=== PATIENT | female | born 2005 | race African-American/Black ===

== ENCOUNTER 2025-03-24 13:09 | Emergency (ER) | payer MEDICAID, OTHER ==
[~2025-03-24] VITALS: Ht 160 cm; Wt 63.3 kg
--- NOTE | 2025-03-24 13:46 | ED.PDOC ---
BOX BLANK MACHINE OPERATOR HELPER HPI Comments 19 y.o female presents to the ED for a chief complaint of pelvic cramping x 3 days associated with new onset vaginal bleeding this morning. Patient is 14 weeks gestation and OB is Dr. Clemens. Patient reports bleeding is mild, no clotting or recent injury reported. Patient at this time rates pelvic pain as a 7/10 on the pain scale that is constant, non radiating and has no alleviating factors. Patient denies any fever, chills, abdominal pain, diarrhea. Patient has no medical history or known allergies. She denies substance, alcohol or tobacco use. Chief Complaint: Vaginal Bleed Time Seen by MD: 13:37 Reviewed Notes: Nurses Notes, Medications, Allergies Allergies: Coded Allergies: NO KNOWN ALLERGIES (Unverified , 03/24/25) Home Meds Active Scripts Nitrofurantoin Monohydrate Mac (Macrobid) 100 Mg Cap, 100 MG PO BID for 7 Days, #14 CAP Prov:BARRY SCHAFFER MD 03/24/25 Information Source: Patient Mode of Arrival: Ambulatory Timing: Hours Severity: Mild Vaginal Discharge: None Vaginal Lesions: None Bleeding Quality: Bright Red Vaginal Mass: None Onset Of Mass/Bleeding: Spontaneous Sexual Activity: Last Consensual [place]: Unknown Control: None History of: Current Associated Signs and Symptoms: Vaginal Bleeding, Cramping Past Medical History PAST MEDICAL HISTORY: Denies Surgical History: Denies all surgeries REQUIREMENTS ANALYST History: No Pertinent REQUIREMENTS ANALYST History Family History Family History: Reviewed,noncontributory to illness Social History Smoker: Non-Smoker Alcohol: Denies ETOH Use Drugs: Denies Drug Use Lives In: Home Constitutional: denies: chills, diaphoresis, fatigue, fever, malaise, sweats, weakness, others EENTM: denies: blurred vision, double vision, ear bleeding, ear discharge, ear drainage, ear pain, ear ringing, eye pain, eye redness, hearing loss, mouth pain, mouth swelling, nasal discharge, nose bleeding, nose congestion, nose pain, photophobia, tearing, throat pain, throat swelling, voice changes, others Respiratory: denies: cough, hemoptysis, orthopnea, SOB at rest, shortness of breath, SOB with excertion, stridor, wheezing, others Cardiovascular: denies: chest pain, dizzy spells, diaphoresis, Dyspnea on e xertion, edema, irregular heart beat, left arm pain, lightheadedness, palpitations, PND, syncope, others Gastrointestinal: denies: abdomen distended, abdominal pain, blood streaked bowels, constipated, diarrhea, dysphagia, difficulty swallowing, hematemesis, melena, nausea, poor appetite, poor fluid intake, rectal bleeding, rectal pain, vomiting, others Genitourinary: reports: abnormal vagina bleeding, pain, ; denies: burning, dyspareunia, dysuria, flank pain, frequency, hematuria, incontinence, vagina discharge, urgency, others Neurological: denies: dizziness, fainting, headache, left sided numbness, left sided weakness, numbness, paresthesia, pre-existing deficit, right sided numbness, right sided weakness, seizure, speech problems, tingling, tremors, weakness, others Musculoskeletal: denies: back pain, gout, joint pain, joint swelling, muscle pain, muscle stiffness, neck pain, others Integumetry: denies: bruises, change in color, change in hair/nails, dryness, laceration, lesions, lumps, rash, wounds, others Allergic/Immunocompromised: denies: Difficulty Healing, Frequent Infections, Hives, Itching, others Hematologic/Lymphatic: denies: anemia, blood clots, easy bleeding, easy bruising, swollen glands, others Endocrine: denies: excessive hunger, excessive sweating, excessive thirst, excessive urination, flushing, intolerance to cold, intolerance to heat, unexplained weight gain, unexplained weight loss, others Psychiatric: denies: anxiety, bipolar disorder, depression, hopeless, panic disorder, schizophrenia, sleepless, suicidal, others All Other Systems: Reviewed and Negative Physical Exam General Appearance: No Apparent Distress HEENT: Normal ENT Inspection, Pharynx Normal, TMs Normal Neck: Full Range of Motion, Non-Tender, Normal, Normal Inspection Respiratory: Chest Non-Tender, Lungs Clear, No Accessory Muscle Use, No Respiratory Distress, Normal Breath Sounds Cardiovascular: No Edema, No JVD, No Murmur, No Gallop, Normal Peripheral Pulses, Regular Rate/Rhythm Breast Exam: Deferred Gastrointestinal: No Organomegaly, Non Tender, No Pulsatile Mass, Normal Bowel Sounds, Soft Genitalia: Deferred Pelvic: Deferred Rectal: Deferred Extremities: No calf tenderness, Normal capillary refill, Normal inspection, Normal range of motion, Non-tender, No pedal edema Musculoskeletal : Apperance: Normal Neurologic: Alert, transit vehicle inspector II-XII nml as Tested, No Motor Deficits, Normal Affect, Normal Mood, No Sensory Deficits Cerebellar Function: Normal Reflexes: Normal Skin: Dry, Normal Color, Warm Lymphatic: No Adenopathy Was a procedure done? Was a procedure done?: No Differential Diagnosis (REQUIREMENTS ANALYST) Vaginal Bleeding: - Complete, - Incomplete, - Inevitable, - Missed, - Threatened, Cervicitis, Ectopic X-Ray, Labs, Meds, VS Vital Signs Date Time Temp Pulse Resp B/P (MAP) Pulse Ox O2 Delivery O2 Flow Rate FiO2 03/24/25 18:00 98.0 90 20 108/55 (72) 100 98.0 03/24/25 15:30 98.8 90 20 105/52 (69) 97 98.8 03/24/25 13:28 98.9 83 17 117/63 (81) 97 98.9 Lab Test 03/24/25 16:43 03/24/25 14:00 Range/Units Urine Color Light-orange Yellow Urine Clarity Turbid H Clear Urine pH 6.0 5.0-9.0 Urine Specific [place] 1.024 1.001-1.035 Urine Protein Negative Negative Urine Ketones Negative Negative Urine Blood Negative Negative /uL Urine Nitrite 2+ H Negative Urine Bilirubin Negative Negative Urine Urobilinogen Normal Negative mg/dL Urine Leukocyte Esterase 2+ Negative /uL Urine RBC 2 0 - 4 /hpf Urine Microscopic WBC 24 H 0-5 /HPF Urine Squamous Epithelial Cells Few <5 /hpf Urine Bacteria Few H None Seen /hpf Urine Mucus Moderate None Seen Urine Glucose Normal Normal mg/dL White Blood Count 9.2 4.4-10.8 10^3/uL Red Blood Count 4.04 4.0-5.20 10^6/uL Hemoglobin 11.7 L 12.2-16.2 g/dL Hematocrit 34.1 L 36.0-46.0 % Mean Corpuscular Volume 84.3 80.0-100.0 fL Mean Corpuscular Hemoglobin 29.0 28.0-32.0 pg Mean Corpuscular Hemoglobin Concent 34.4 32.0-36.0 g/dL Red Cell Distribution Width 16.3 H 11.8-14.3 % Platelet Count 374 140-450 10^3/uL Mean Platelet Volume 6.8 L 6.9-10.8 fL Neutrophils (%) (Auto) 75.9 37.0-80.0 % Lymphocytes (%) (Auto) 16.9 10.0-50.0 % Monocytes (%) (Auto) 6.0 0.0-12.0 % Eosinophils (%) (Auto) 0.9 0.0-7.0 % Basophils (%) (Auto) 0.3 0.0-2.0 % Neutrophils # (Auto) 7.0 1.6-8.6 10 ^3/uL Lymphocytes # (Auto) 1.6 0.4-5.4 10 ^3/uL Monocytes # (Auto) 0.6 0-1.3 10 ^3/uL Eosinophils # (Auto) 0.1 0-0.8 10 ^3/uL Basophils # (Auto) 0 0-0.2 10 ^3/uL Nucleated Red Blood Cells 0.0 % Beta HCG, Quantitative 07945.0 H 1.5-4.2 mIU/mL Ultrasound of the pelvis shows:IMPRESSION: IUP single live fetus at 15 weeks 5 days AUA corresponding to an YUSUF of 09-10-25 The CBC is within normal limits. The urine test is [place] [address] The patient is being discharged with a prescription of Macrobid The patient will return to the emergency department's the condition worsens Images Reviewed?: Images reviewed and evaluated by me Time of 1ST Reevaluation: 14:30 Reevaluation 1ST: Unchanged Patient Education/Counseling: Diagnosis, Treatment, Prognosis, Need For Follow Up Family Education/Counseling: No Family Present Departure 1 Departure Time of Disposition: 18:18 Impression: Primary Impression: UTI in Qualified Codes: O23.40 - Unspecified infection of urinary tract in , unspecified trimester Additional Impression: Threatened Disposition: 01 HOME / SELF CARE / HOMELESS Condition: Fair e-Prescriptions Nitrofurantoin Monohydrate Mac (Macrobid) 100 Mg Cap 100 MG PO BID for 7 Days, #14 CAP Prov: BARRY SCHAFFER MD 03/24/25 Discharged With: Self Critical Care Note Critical Care Time?: No Stability Stability form required: No I personally scribed for BARRY SCHAFFER MD ([email or web address]) on 6/30/25 at 13:46. Electronically submitted by Lata Santos ([facility]). I personally scribed for BARRY SCHAFFER MD ([email or web address]) on 03/24/25 at 14:59. Electronically submitted by Lata Santos ([facility]). BARRY SCHAFFER MD Mar 24, 2025 13:46
--- NOTE | 2025-03-24 14:17 | DVH ---
LIMITED OB ULTRASOUND > 14 WKS: HISTORY: vag bleeding and pain TECHNIQUE: Multiple real-time grayscale images of the gravid uterus with duplex Doppler color flow an d M-mode spectral analysis. TRANSDUCER: TA FINDINGS: IUP single live fetus at 15 weeks 5 days based on composite averages of the BPD, head circumference, abdominal circumference and femur length Estimated weight 132 grams heart rate 157 beats per minute TOREY appears adequate Cervix is closed measuring 3.1 cm. CEphalic Presentation Grade II Placenta without previa or abruption. IMPRESSION: IUP single live fetus at 15 weeks 5 days AUA corresponding to an YUSUF of 09-10-25
[2025-03-24 14:19] LABS: Basophils # (auto) 0 10 ^3/uL (0-0.2); Basophils % (auto) 0.3 % (0.0-2.0); Eosinophils # (auto) 0.1 10 ^3/uL (0-0.8); Eosinophils % (auto) 0.9 % (0.0-7.0); Hematocrit 34.1 % (36.0-46.0); Hemoglobin 11.7 g/dL (12.2-16.2); Lymphocytes # (auto) 1.6 10 ^3/uL (0.4-5.4); Lymphocytes % (auto) 16.9 % (10.0-50.0); Mean Corpuscular Hgb Conc. 34.4 g/dL (32.0-36.0); Mean Corpuscular Volume 84.3 fL (80.0-100.0); Monocytes # (auto) 0.6 10 ^3/uL (0-1.3); Neutrophils % (auto) 75.9 % (37.0-80.0); Platelet Count (auto) 374 10^3/uL (140-450); Red Blood Cells 4.04 10^6/uL (4.0-5.20); Red Cell Distribution Width 16.3 % (11.8-14.3); White Blood Cell 9.2 10^3/uL (4.4-10.8)
[2025-03-24 17:27] LABS: Urine Bacteria FEW /hpf (None Seen); Urine Blood Negative /uL (Negative); Urine Clarity Turbid (Clear); Urine Color Light-Orange (Yellow); Urine Mucus MODERATE (None Seen); Urine Protein, UAD Negative (Negative); Urine Specific Gravity 1.024 (1.001-1.035); Urine Squamous Epithelial Cell FEW /hpf (<5); Urine Urobilinogen Normal (Negative); Urine WBC 24 /HPF (0-5)
[2025-03-24 18:00] VITALS: BP 108/55; TEMP 98
[2025-03-24] MEDS ORDERED: NITR-87 PO (18:17)
[2025-03-24 19:32] VITALS: PULSE 90; RESP 20; O2SAT 100
== END 2025-03-24 19:34 | disposition home or self-care (01) ==
LOC: ER 13:09
DX: O23.42 Unspecified infection of urinary tract in pregnancy, second trimester (principal); O20.0 Threatened abortion; Z3A.15 15 weeks gestation of pregnancy; Z79.899 Other long term (current) drug therapy
CPT/HCPCS: 36415; 76805; 81001; 84702; 85025

== ENCOUNTER 2025-06-07 15:07 | Observation (INO) | payer MEDICAID ==
[~2025-06-07] VITALS: Ht 160 cm; Wt 72.1 kg
[~2025-06-07 15:07] MED LIST: NITR-87 PO
--- NOTE | 2025-06-07 16:25 | DVH ---
EXAM: US OB ULTRASOUND COMP GTR 14 WKS HISTORY: abdominal trauma COMPARISON: US OB ULTRASOUND COMP GTR 14 WKS on DOS: 03/24/25 TECHNIQUE: Transabdominal and endovaginal real time crow scale, color, and doppler evaluation. Perman ent images are maintained in the patient record. FINDINGS: GA by previous US/LMP: 26 weeks, 3 days YUSUF by previous US/LMP: 09/10/25 US GESTATIONAL AGE: 26 weeks, 2 days US YUSUF: 09/11/25 ESTIMATED WEIGHT: 903.11 g. 2 lb, 0 oz HEART RATE: 134 bpm BPD: 6.55 cm, 26 weeks 3 days, 40.1% HC: 24.36 cm, 26 weeks 3 days, 24.5% AC: 21.4 cm, 25 weeks 6 days, 25.5% FL: 4.9 cm, 26 weeks 3days, 36.3% HC/AC: 1.14 ANATOMY: Normal head, 4 chamber heart, face, spine, stomach, kidneys, cord insertion, bladder, extrem ities POSITION: Cephalic PLACENTA: Posterior Cervical length measures 3.6 cm IMPRESSION: 1. Single viable gestation with normal cardiac activity and anatomy as above.
[2025-06-07] MEDS: LACTATED RINGER'S 1,000 ML IV ONE (16:37)
[2025-06-07] MEDS: ceFAZolin 1GM/50ML 50 ML IV ONE (16:49)
[2025-06-07] MEDS: ACETAMINOPHEN IV 1000 MG/100ML (10MG/ML) IV ONE (18:28)
[2025-06-07] MEDS: LACTATED RINGER'S 1,000 ML IV SCH (18:41)
--- NOTE | 2025-06-07 19:47 | DVHDS2 ---
Physician Discharge Progress N Final Diagnosis: 26 WKS ABD PAIN AFTER TRAUMA Operations or Procedures: Operations or Procedures NST REACTIVE REVIWEDSAYO Condition on Discharge: Good Disposition: Home Discharge Instructions: Diet: Regular Activity: Light activity Medications: NA Follow Up Care: Specialist: 2D Discharge Statement: "Patient was advised to return to the ER or call 911 if any headaches, dizziness, shortness of breath, chest pain, abdominal pain, bleeding, fevers, or worsening of medical condition. Patient was counseled about treatment plan, medications, possible side effects, patientverbalized understanding. All questions were answered to the best of my ability. This discharge took greater then 30 minutes in planning, reviewing docume ntation, counseling the patient, and discussing with other team members." Visit Coding OBGYN Date of Service: Jun 07, 2025 Billing Provider: RADHA SALINAS DO CYLINDER GRINDER Common Visit Codes: 14455-RMKSTVZ OBS CARE (HIGH) CYLINDER GRINDER Procedure Codes: 31012-20- NON-STRESS TEST RADHA SALINAS DO Jun 07, 2025 19:47
[2025-06-07] MEDS: HYDROcodone-ACET 10/325MG TAB ONE (19:54)
[2025-06-07] MEDS: HYDROcodone-ACET 5/325MG TAB PO PRN (20:58)
== END 2025-06-07 20:51 | disposition home or self-care (01) ==
LOC: LDRP 15:07
PROVIDERS: ADMIT Obstetrics & Gynecology; ATTEND Obstetrics & Gynecology
DX: O26.892 Other specified pregnancy related conditions, second trimester (principal); R10.9 Unspecified abdominal pain; Z3A.26 26 weeks gestation of pregnancy; Z98.890 Other specified postprocedural states
CPT/HCPCS: 59025; 76805; 81002; 94760; 96360; 96361; 96365; 96366; G0378; J0690; 96375

== ENCOUNTER 2025-06-14 03:45 | Observation (INO) | payer MEDICAID ==
[~2025-06-14] VITALS: Ht 160 cm; Wt 72.1 kg
[2025-06-14] MEDS: ONDANSETRON HCL 4 MG/2 ML VIAL IV PRN (05:21)
[2025-06-14] MEDS: ACETAMINOPHEN 500 MG TAB or CAP PO ONE (05:25)
[2025-06-14] MEDS: LACTATED RINGER'S 1,000 ML IV ONE (05:29)
--- NOTE | 2025-06-14 06:07 | DVH ---
INDICATION: Nausea, Vomiting and Abdominal Pain TECHNIQUE: Multiple real-time sonographic images were obtained of the right upper quadrant. COMPARISON: None FINDINGS: The liver demonstrates normal homogeneous echotexture without focal mass lesions. The liver measures 14.1 cm. Normal hepatopetal portal venous flow identified. No evidence of pleural effusion or abdominal ascites. There is no intrahepatic or extrahepatic ductal dilatation. The common duct measures 0.3 cm. The gallbladder is without evidence of stone or sludge. The gallbladder wall measures 0.2 cm and is w ithin normal limits. The right kidney measures 9.3 cm. The right kidney is normal in contour, size, and shape. The echogen icity is normal. There is no hydronephrosis. The pancreas is not well visualized due to overlying bowel gas. IMPRESSION: 1. No sonographic evidence of gallstones or acute cholecystitis.
[2025-06-14 07:37] LABS: Hemoglobin 8.8 g/dL (12.2-16.2)
[2025-06-14 07:40] LABS: Hematocrit 26.8 % (36.0-46.0); Mean Corpuscular Hemoglobin 27.5 pg (28.0-32.0); Mean Corpuscular Volume 83.4 fL (80.0-100.0); Nucleated Red Blood Cells % 0.1 %
[2025-06-14 07:47] LABS: Albumin 3.7 g/dL (3.2-4.8); Alkaline Phosphatase 97 U/L (46-116); Anion Gap 11 (5-15); Carbon Dioxide 22 mmol/L (20-31); Chloride 106 mmol/L (98-107); Glucose 79 mg/dL (74-106); Sodium 139 mmol/L (136-145)
[2025-06-14 07:49] LABS: Bilirubin, Total 0.3 mg/dL (0.2-1.0)
[2025-06-14 07:52] LABS: Alanine Aminotransferase < 9 U/L (7-40); Calcium 8.7 mg/dL (8.7-10.4); Potassium 3.3 mmol/L (3.5-5.1)
[2025-06-14 08:22] LABS: Protein, Urine 6.1 mg/dL (1-14)
[2025-06-14 08:25] LABS: Urine Protein, UAD Negative (Negative)
[2025-06-14 08:32] LABS: Amphetamine Screen, Urine Neg (NEGATIVE); Barbiturate Scree,Urine Neg (NEGATIVE); Benzodiazephine Screen, Urine Neg (NEGATIVE); Cannabinoid Screen, Urine Neg (NEGATIVE); Cocaine Screen, Urine Neg (NEGATIVE); Opiate Scree,Urine Neg (NEGATIVE); Phencyclidine Screen, Urine Neg (NEGATIVE)
[2025-06-14 08:47] LABS: INR 1.0 (0.9-1.15); Partial Thromboplastin Time 27.6 SEC (24.5-34.5); Prothrombin Time 10.6 sec (9.3-11.8)
[2025-06-14 08:49] LABS: Uric Acid 2.8 mg/dL (3.1-7.8)
[2025-06-14 08:50] LABS: Total Protein 6.5 g/dL (5.7-8.2)
[2025-06-14 08:51] LABS: BUN/Creatinine Ratio 12.2 (10.0-20.0); Blood Urea Nitrogen < 5 mg/dL (9-23)
[2025-06-14 09:01] LABS: Lipase 32 U/L (12-53)
[2025-06-14 09:02] LABS: Amylase 164 U/L (30-118)
[2025-06-14 09:09] LABS: Fibrinogen 407.0 mg/dL (177-375)
--- NOTE | 2025-06-14 10:06 | DVHDS2 ---
Physician Discharge Progress N Final Diagnosis: IUP 27 wk, abdominal pain N/V Secondary Diagnosis: Gastroenteritis, dehydration Operations or Procedures: Operations or Procedures NST, labs all WNL RUQ us normal Condition on Discharge: Stable Disposition: Home Discharge Instructions: Diet: Regular Activity: No Restrictions, As Tolerated Follow Up/Referral: [address] Clemens Medications: Tylenol PRN pain Follow Up Care: Discharge Statement: "Patient was advised to return to the ER or call 911 if any headaches, dizziness, shortness of breath, chest pain, abdominal pain, bleeding, fevers, or worsening of medical condition. Patient was counseled about treatment plan, medications, possible side effects, patientverbalized understanding. All questions were answered to the best of my ability. This discharge took greater then 30 minutes in planning, reviewing do cumentation, counseling the patient, and discussing with other team members." Visit Coding OBGYN Date of Service: Jun 14, 2025 Billing Provider: TASIA ROBLEDO DO SOLAR INSTALLATION HELPER Common Visit Codes: 39767-RTL/OBS SAME DATE (HIGH) SOLAR INSTALLATION HELPER Procedure Codes: 93650-63- NON-STRESS TEST TASIA ROBLEDO DO Jun 14, 2025 10:06
== END 2025-06-14 09:12 | disposition home or self-care (01) ==
LOC: LDRP 03:45
PROVIDERS: ADMIT Obstetrics & Gynecology; ATTEND Obstetrics & Gynecology
DX: O26.892 Other specified pregnancy related conditions, second trimester (principal); K52.9 Noninfective gastroenteritis and colitis, unspecified; E86.0 Dehydration; O21.2 Late vomiting of pregnancy; Z3A.27 27 weeks gestation of pregnancy; Z98.890 Other specified postprocedural states; Z86.2 Personal history of diseases of the blood and blood-forming organs and certain disorders involving the immune mechanism
CPT/HCPCS: 36415; 76705; 80053; 80307; 81001; 81002; 82150; 82570; 83690; 84156; 84550; 85025; 85384; 85610; 85730; 96361; 96374; G0378; J2405

== ENCOUNTER 2025-07-15 21:25 | Observation (INO) | payer MEDICAID ==
[2025-07-15] MEDS ORDERED: PREN-96 PO (21:59)
[2025-07-15 22:30] LABS: Urine Protein, UAD 1+ (Negative)
[2025-07-15 22:40] LABS: Vaginal Trichomonas Not Present
[2025-07-15 22:41] LABS: Vaginal Bacteria Moderate
[2025-07-15 22:42] LABS: Vaginal Epithelial Cells Many
[2025-07-15 22:43] LABS: Vaginal Clue Cells Few
[2025-07-15] MEDS ORDERED: METR-344 PO (22:52)
--- NOTE | 2025-07-15 22:52 | DVHDS2 ---
Physician Discharge Progress N Final Diagnosis: BV Problems List: (1) Bacterial vaginosis in (2) 31 weeks gestation of Operations or Procedures: Operations or Procedures S: 20yo IUP@31.3wks presents to OB triage with c/o uterine cramps and vaginal discharge during cramps. Did not drink water today. Denies UCs/LOF/VB/ALVARADO/vision changes/RUQ pain. Endorses +FM. PNC with Dr. Clemens at [facility] OB office since December 2024, had appt with her today. Was on bed rest for the last month due to getting hit in the abdomen at work and having uterine cramps. Takes PNV and iron daily. OB hx: x1 PMH: anemia PSH: denies O: VSS, see CPN NST reactive (FHR baseline 140, moderate variability, +accels, -decels) TOCO: no UCs OB complete: WNL, CVL 3.18cm SSE by RN: negative nitrazine and pooling Laboratory Tests Test 07/15/25 21:45 07/15/25 21:48 Range/Units Placental Xaepy-[id number] Negative Vaginal WBC (Wet Prep) Moderate Vaginal RBC (Wet Prep) Rare Vaginal Epithelial Cells (Wet Prep) Many Vaginal Bacteria (Wet Prep) Moderate Vaginal Trichomonas (Wet Prep) Not present Vaginal Yeast (Wet Prep) None seen Vaginal Clue Cells (Wet Prep) Few Urine Color Yellow Yellow Urine Clarity Clear Clear Urine pH 6.0 5.0-9.0 Urine Specific [place] 1.032 1.001-1.035 Urine Protein 1+ H Negative Urine Ketones 1+ H Negative Urine Blood Negative Negative /uL Urine Nitrite Negative Negative Urine Bilirubin Negative Negative Urine Urobilinogen 6 Negative mg/dL Urine Leukocyte Esterase 2+ Negative /uL Urine RBC 1 0 - 4 /hpf Urine Microscopic WBC 8 H 0-5 /HPF Urine Squamous Epithelial Cells Few <5 /hpf Urine Bacteria None seen None Seen /hpf Urine Mucus Few None Seen Urine Glucose 1+ H Normal mg/dL A: 20yo IUP@31.3wks BV P: D/C home Rx sent for flagyl Discontinued bed rest but continue pelvic rest until next appt with Dr. Clemens. Recommended OTC womens probiotic supplement daily Drink 1 gallon of water a day FKC/PTL/preE precautions reviewed Dr. Clemens consulted, agrees with POC. Other Interventions Other Interventions [address] [address] Ph: [phone] DIAGNOSTIC IMAGING Diagnostic Imaging Report : [id number] Signed PATIENT: VITA DAWKINSACCT: [id number] UNIT: [id number] : 2005 LOC: [facility] ROOM / BED: TRIAGE2 / A AGE / SEX: 20 / F ADM STATUS: ADM IN SERVICE 29 ORDERING PHYSICIAN: OLAF TRACEY CNM PROCEDURE(s): OBUS - OB ULTRASOUND COMP GTR 14 WKS REASON: CRAMPING AND LEAKING OF FLUID ORDER NUMBER(s): [id number], ACCESSION NUMBER(s): [id number] EXAM: US OB ULTRASOUND COMP GTR 14 WKS HISTORY: CRAMPING AND LEAKING OF FLUID TECHNIQUE: Multiple real-time grayscale images of the gravid uterus with duplex Doppler color flow and M-mode spectral analysis. COMPARISON: US OB ULTRASOUND COMP GTR 14 WKS on DOS: 06/07/25, US OB ULTRASOUND COMP GTR 14 WKS on DOS: 03/24/25 FINDINGS: IUP single live fetus at 32 weeks 0 days average ultrasound age (AUA) based on composite averages of the BPD, head circumference, abdominal circumference and femur length Age based on (early ultrasound) : 32 weeks 0 days MEASUREMENTS: BPD: 8.1 cm GA: 32 w 5 d HC: 29.9 cm GA: 33 w 1 d AC: 26.7 cm GA: 30 w 6 d FL: 5.9 cm GA: 31 w 0 d Estimated weight 903.11+/-135.47 grams; 2 lbs 0 oz +/-5 oz, 45.5th percentile. heart rate 135 beats per minute TOREY 16.7 cm ANATOMIC SURVEY: Complete anatomic survey was not performed at this time. Cephalic Presentation Posterior grade I placenta without previa or abruption Cervix closed measuring 3.2 cm IMPRESSION: 1. IUP single live fetus with positive heart tones at 32 weeks 0 days AUA corresponding to an YUSUF of 09/09/2025. ATED BY: JAZIEL HIGGINBOTHAM MD DICTATED DATE/TIME: 07/15/252320 SIGNED BY: JAZIEL HIGGINBOTHAM MD SIGNED DATE/TIME: 07/15/252320 CC: Condition on Discharge: Stable Disposition: Home Discharge Instructions: Diet: Regular Activity: See Comment Activity comment: pelvic rest Medications: see med list Follow Up Care: Specialist: f/u with Dr. Clemens as scheduled Discharge Statement: "Patient was advised to return to the ER or call 911 if any headaches, dizzi ness, shortness of breath, chest pain, abdominal pain, bleeding, fevers, or worsening of medical condition. Patient was counseled about treatment plan, medications, possible side effects, patientverbalized understanding. All questions were answered to the best of my ability. This discharge took greater then 30 minutes in planning, reviewing documentation, counseling the patient, and discussing with other team members." Visit Coding OBGYN Date of Service: Jul 16, 2025 Billing Provider: OLAF TRACEY CNM MULTIPLE WIRE SAWYER Common Visit Codes: 32274-AFTMRBY OBS CARE (HIGH) MULTIPLE WIRE SAWYER Procedure Codes: 17517-50- NON-STRESS TEST OLAF TRACEY CNM Jul 15, 2025 22:52
--- NOTE | 2025-07-15 23:23 | DVH ---
EXAM: US OB ULTRASOUND COMP GTR 14 WKS HISTORY: CRAMPING AND LEAKING OF FLUID TECHNIQUE: Multiple real-time grayscale images of the gravid uterus with duplex Doppler color flow an d M-mode spectral analysis. COMPARISON: US OB ULTRASOUND COMP GTR 14 WKS on DOS: 06/07/25, US OB ULTRASOUND COMP GTR 14 WKS on DOS : 03/24/25 FINDINGS: IUP single live fetus at 32 weeks 0 days average ultrasound age (AUA) based on composite averages of the BPD, head circumference, abdominal circumference and femur length Age based on (early ultrasound) : 32 weeks 0 days MEASUREMENTS: BPD: 8.1 cm GA: 32 w 5 d HC: 29.9 cm GA: 33 w 1 d AC: 26.7 cm GA: 30 w 6 d FL: 5.9 cm GA: 31 w 0 d Estimated weight 903.11+/-135.47 grams; 2 lbs 0 oz +/-5 oz, 45.5th percentile. heart rate 135 beats per minute TOREY 16.7 cm ANATOMIC SURVEY: Complete anatomic survey was not performed at this time. Cephalic Presentation Posterior grade I placenta without previa or abruption Cervix closed measuring 3.2 cm IMPRESSION: 1. IUP single live fetus with positive heart tones at 32 weeks 0 days AUA corresponding to an E DD of 09/09/2025.
== END 2025-07-15 23:03 | disposition home or self-care (01) ==
LOC: LDRP 21:25
PROVIDERS: ADMIT Obstetrics & Gynecology; ATTEND Obstetrics & Gynecology
DX: O23.593 Infection of other part of genital tract in pregnancy, third trimester (principal); Z3A.31 31 weeks gestation of pregnancy; Z98.890 Other specified postprocedural states
CPT/HCPCS: 59025; 76805; 81001; 84112; 87210; 94760; G0378

== ENCOUNTER 2025-07-20 10:30 | Observation (INO) | payer MEDICAID ==
[~2025-07-20 10:30] MED LIST changes: +METR-344 PO; -NITR-87 PO; +PREN-96 PO
--- NOTE | 2025-07-20 15:18 | DVH ---
OB ULTRASOUND, LIMITED CLINICAL INDICATION: Fall/Decreased movement TECHNIQUE: Multiple grayscale ultrasound and M-mode images were obtained of the pelvis for evaluation of intrauterine . COMPARISON: US OB ULTRASOUND COMP GTR 14 WKS on DOS: 07/15/25, US OB ULTRASOUND COMP GTR 14 WKS on DO S: 06/07/25, US OB ULTRASOUND COMP GTR 14 WKS on DOS: 03/24/25 FINDINGS: A single living fetus is seen in cephalic presentation. Biophysical profile: 05/02 breathin movement: 2 tone: 2 Amniotic Fluid volume: 2 Placenta: Posterior, grade 1. Amniotic fluid: Visibly normal. TOREY 10.3 cm heart rate: 142 beats/min. A complete anatomic survey was not performed on this exam. Cervix 2.7 cm and closed. IMPRESSION: 1. Biophysical profile: 05/02
--- NOTE | 2025-07-21 12:26 | DVHDS2 ---
Physician Discharge Progress N Final Diagnosis: Birthplace has cleared for any OB issues, pt to go over to ER for futher evaluation. abd pain 32 wks s/p fall Operations or Procedures: Operations or Procedures nst reactive reviwed,sono Condition on Discharge: Good Disposition: Home Discharge Instructions: Diet: Regular Activity: Light activity Medications: na Follow Up Care: Specialist: 2d Discharge Statement: "Patient was advised to return to the ER or call 911 if any headaches, dizziness, shortness of breath, chest pain, abdominal pain, bleeding, fevers, or worsening of medical condition. Patient was counseled about treatment plan, medications, possible side effects, patientverbalized understanding. All questions were answered to the best of my ability. This discharge took greater then 30 minutes in planning, reviewing documentation, counseling the patient, and discussing with other team members." Visit Coding OBGYN Date of Service: Jul 20, 2025 Billing Provider: RADHA SALINAS DO COOKER CLEANER Common Visit Codes: [id number] OBS CARE (HIGH) COOKER CLEANER Procedure Codes: 86743-95- NON-STRESS TEST RADHA SALINAS DO Jul 21, 2025 12:25
== END 2025-07-20 12:23 | disposition home or self-care (01) ==
LOC: LDRP 10:30
PROVIDERS: ADMIT Obstetrics & Gynecology; ATTEND Obstetrics & Gynecology
DX: O26.893 Other specified pregnancy related conditions, third trimester (principal); R10.9 Unspecified abdominal pain; Z98.890 Other specified postprocedural states; Z3A.32 32 weeks gestation of pregnancy
CPT/HCPCS: 59025; 76819; 81002; 94760; G0378

== ENCOUNTER 2025-07-30 12:41 | Observation (INO) | payer MEDICAID ==
[2025-07-30 13:54] LABS: Albumin 4.0 g/dL (3.2-4.8); Anion Gap 8 (5-15); BUN/Creatinine Ratio 12.0 (10.0-20.0); Bilirubin, Total 0.4 mg/dL (0.2-1.0); Carbon Dioxide 24 mmol/L (20-31); Chloride 106 mmol/L (98-107); Glucose 80 mg/dL (74-106); Sodium 138 mmol/L (136-145); Total Protein 7.3 g/dL (5.7-8.2)
[2025-07-30 13:57] LABS: Alanine Aminotransferase < 9 U/L (7-40); Alkaline Phosphatase 161 U/L (46-116); Blood Urea Nitrogen 6 mg/dL (9-23); Calcium 8.5 mg/dL (8.7-10.4); Nucleated Red Blood Cells % 0.4 %; Potassium 3.5 mmol/L (3.5-5.1)
[2025-07-30 13:59] LABS: Hematocrit 27.0 % (36.0-46.0); Hemoglobin 8.8 g/dL (12.2-16.2); Mean Corpuscular Hemoglobin 24.2 pg (28.0-32.0); Mean Corpuscular Volume 74.5 fL (80.0-100.0)
[2025-07-30 14:33] LABS: Urine Protein, UAD 1+ (Negative)
[2025-07-30] MEDS ORDERED: NITR-87 PO (15:24)
--- NOTE | 2025-07-30 15:41 | DVH ---
OB ULTRASOUND, LIMITED CLINICAL INDICATION: limited care TECHNIQUE: Multiple grayscale ultrasound and M-mode images were obtained of the pelvis for evaluation of intrauterine . COMPARISON: US BIOPHYSICAL PROFILE on DOS: 07/22/25, FINDINGS: A single living fetus is seen in cephalic presentation. Biparietal diameter: 8.3 cm (33 weeks, 4 days) Head Circumference: 31.6 cm (35 weeks, 4 days) Abdomen Circumference: 29.6 cm (33 weeks, 5 days) Femur Length: 6.3 cm (33 weeks, 0 days) Estimated weight: 2244 grams (+/- 336 grams). Placenta: Posterior. Grade 2 Amniotic fluid: Visibly normal. TOREY 14 cm Three-vessel cord: Present. Cord insertion: Normal. heart rate: 155 beats/min. 4-chamber heart, stomach, bilateral kidneys and urinary bladder grossly unremarkable. Cervix is 3.6 cm and closed. IMPRESSION: 1. Single intrauterine with an estimated gestational age of 34 weeks, 0 days, corresponding to an estimated date of delivery of 09/10/2025.
--- NOTE | 2025-08-01 14:20 | DVHDS2 ---
Physician Discharge Progress N Final Diagnosis: pelvic pressure Operations or Procedures: Operations or Procedures nst reactive reviwed,sono Condition on Discharge: Good Disposition: Home Discharge Instructions: Diet: Regular Activity: No Restrictions, As Tolerated Medications: na Follow Up Care: Specialist: 3d Discharge Statement: "Patient was advised to return to the ER or call 911 if any headaches, dizziness, shortness of breath, chest pain, abdominal pain, bleeding, fevers, or worsening of medical condition. Patient was counseled about treatment plan, medications, possible side effects, patientverbalized understanding. All questions were answered to the best of my ability. This discharge took greater then 30 minutes in planning, reviewing docu mentation, counseling the patient, and discussing with other team members." Visit Coding OBGYN Date of Service: Jul 30, 2025 Billing Provider: RADHA SALINAS DO COMPANY DANCER Common Visit Codes: 69302-CRAICVG OBS CARE (HIGH) COMPANY DANCER Procedure Codes: 52030-42- NON-STRESS TEST RADHA SALINAS DO Aug 01, 2025 14:19
== END 2025-07-30 15:21 | disposition home or self-care (01) ==
LOC: LDRP 12:41
PROVIDERS: ADMIT Obstetrics & Gynecology; ATTEND Obstetrics & Gynecology
DX: O36.8130 Decreased fetal movements, third trimester, not applicable or unspecified (principal); Z3A.33 33 weeks gestation of pregnancy; Z98.890 Other specified postprocedural states
CPT/HCPCS: 36415; 59025; 76805; 76817; 80053; 81001; 81002; 85025; 86850; 86900; 86901; 86920; 94760; G0378

== ENCOUNTER 2025-08-06 08:51 | Observation (INO) | payer MEDICAID ==
[~2025-08-06] VITALS: Ht 160 cm; Wt 63.5 kg
[~2025-08-06 08:51] MED LIST changes: +NITR-87 PO
--- NOTE | 2025-08-06 13:07 | DVH ---
BIOPHYSICAL PROFILE HISTORY: LOW hgB TECHNIQUE: Multiple transabdominal real-time grayscale sonographic images through the gravid uterus of the fetus with duplex Doppler color flow and M-mode spectral analysis FINDINGS: BIOPHYSICAL PROFILE: breathing score: 2 movement score: 2 tone score: 2 Quantitative TOREY score: 2 (TOREY: 12.6 Cm.) Total score: 8 Cervix is closed measuring 3.1 cm. Single live fetus in cephalic presentation. heart rate 138 beats per minute. Grade II posterior placenta without previa or abruption IMPRESSION: Biophysical profile score: 8/8
[2025-08-06] MEDS: ceFAZolin 2 GM/D5W50ml 50 ML IV ONE (13:45)
[2025-08-06] MEDS: LACTATED RINGER'S 1,000 ML IV ONE (13:46)
[2025-08-06 14:13] LABS: Urine Protein, UAD TRACE (Negative)
--- NOTE | 2025-08-06 14:29 | DVHDS2 ---
Physician Discharge Progress N Final Diagnosis: dehydration,anemia Operations or Procedures: Operations or Procedures nst reactive reviwed,sono,ivf Condition on Discharge: Good Disposition: Eloped Discharge Instructions: Diet: Regular Activity: No Restrictions, As Tolerated Medications: na Follow Up Care: Specialist: 1w Discharge Statement: "Patient was advised to return to the ER or call 911 if any headaches, dizziness, shortness of breath, chest pain, abdominal pain, bleeding, fevers, or worsening of medical condition. Patient was counseled about treatment plan, medications, possible side effects, patientverbalized understanding. All questions were answered to the best of my ability. This discharge took greater then 30 minutes in planning, reviewing documentation, counseling the patient, and discussing with other team members." Visit Coding OBGYN Date of Service: Aug 06, 2025 Billing Provider: RADHA SALINAS DO DYNAMIC BALANCER SET UP WORKER Common Visit Codes: [id number] OBS CARE (HIGH) DYNAMIC BALANCER SET UP WORKER Procedure Codes: 46720-93- NON-STRESS TEST RADHA SALINAS DO Aug 06, 2025 14:29
[2025-08-06] MEDS: TERBUTALINE SULFATE 1 MG/ML 1ML VIAL SC SCH (14:53)
== END 2025-08-06 17:06 | disposition home or self-care (01) ==
LOC: UNDOADMOB 11:57 → LDRP 11:57 → UNDODISOB 17:06
PROVIDERS: ADMIT Obstetrics & Gynecology; ATTEND Obstetrics & Gynecology
DX: O99.013 Anemia complicating pregnancy, third trimester (principal); D64.9 Anemia, unspecified; O99.283 Endocrine, nutritional and metabolic diseases complicating pregnancy, third trimester; E86.0 Dehydration; Z3A.34 34 weeks gestation of pregnancy; Z98.890 Other specified postprocedural states; Z79.899 Other long term (current) drug therapy
CPT/HCPCS: 59025; 76819; 81001; 81002; 87086; 94760; 96361; 96365; 96372; G0378; J0690; J3105; 96360

== ENCOUNTER 2025-08-06 12:45 | Observation (INO) | payer MEDICAID ==
--- NOTE | 2025-08-06 22:40 | DVHDS2 ---
Physician Discharge Progress N Final Diagnosis: wellbeing established Operations or Procedures: Operations or Procedures S- Pt is a 20yo iup@34 4/7 wks presenting with "decreased movement" and hx of UTI on 07/30 previously treated with Keflex, and ancef IV x1 on 08/06. Denies vaginal bleeding, leaking of fluid, cramping, UCs. care with Dr Clemens at [facility] OB office, complicated by anemia, takes PNV and iron supplements O- Vss see CPN, NST reactive (FHR baseline 150, moderate variability, + accels, - decels) PO hydration BPP 8/8 earlier today A- 20yo iup@34 4/7 wellbeing established P- D/C home Pt to follow up with Dr. Clemens in Clinic for urine culture results (collected earlier today) Pre-term labor precautions given UTI education given pt instructed to hydrate adequately kick counts reviewed Dr Clemens consulted agrees with poc Condition on Discharge: Stable Disposition: Home SNF Discharge Will this Physician continue t: No Discharge Instructions: Diet: Regular (Pt instructed to hydrate adequately ) Activity: No Restrictions, As Tolerated Medications: Continue ferrous sulfate and PNV Follow Up Care: Specialist: follow up in one week Discharge Statement: "Patient was advised to return to the ER or call 911 if any headaches, dizziness, shortness of breath, chest pain, abdominal pain, bleeding, fevers, or worsening of medical condition. Patient was counseled about treatment plan, medications, possible side effects, patientverbalized understanding. All questions were answered to the best of my ability. This discharge took greater then 30 minutes in planning, reviewing documentation, counseling the patient, and discussing with other team members." Discharge Care Plan Instructions S/S of dehydration Visit Coding OBGYN Date of Service: Aug 06, 2025 Billing Provider: OLAF TRACEY CNM PET SITTER Common Visit Codes: [id number] OBS CARE (MOD) PET SITTER Procedure Codes: 16681-63- NON-STRESS TEST YASH IBARRA STUDENTMDW Aug 06, 2025 22:39
== END 2025-08-06 21:09 | disposition home or self-care (01) ==
LOC: LDRP 12:45 → UNDOADMOB 12:45 → LDRP 20:10
PROVIDERS: ADMIT Obstetrics & Gynecology; ATTEND Obstetrics & Gynecology
DX: O36.8130 Decreased fetal movements, third trimester, not applicable or unspecified (principal); O23.43 Unspecified infection of urinary tract in pregnancy, third trimester; N39.0 Urinary tract infection, site not specified; O99.019 Anemia complicating pregnancy, unspecified trimester; D64.9 Anemia, unspecified; Z3A.34 34 weeks gestation of pregnancy; Z98.890 Other specified postprocedural states
CPT/HCPCS: 59025; 81002; 94760; G0378

== ENCOUNTER 2025-08-09 14:57 | Observation (INO) | payer MEDICAID ==
[~2025-08-09] VITALS: Ht 157.5 cm; Wt 68.0 kg
[2025-08-09 15:51] LABS: Hematocrit 26.0 % (36.0-46.0); Hemoglobin 8.3 g/dL (12.2-16.2); Mean Corpuscular Hemoglobin 23.4 pg (28.0-32.0); Mean Corpuscular Volume 73.8 fL (80.0-100.0); Nucleated Red Blood Cells % 1.0 %
[2025-08-09 15:55] LABS: Urine Protein, UAD 1+ (Negative)
[2025-08-09] MEDS ORDERED: TERBUTALINE SULFATE 1 MG/ML 1ML VIAL SC ONE (15:56)
[2025-08-09 16:04] LABS: INR 0.99 (0.9-1.15); Partial Thromboplastin Time 28.5 SEC (24.5-34.5); Prothrombin Time 10.5 sec (9.3-11.8)
[2025-08-09 16:06] LABS: Protein, Urine 29.9 mg/dL (1-14)
[2025-08-09 16:12] LABS: Alanine Aminotransferase < 9 U/L (7-40); Albumin 3.7 g/dL (3.2-4.8); Alkaline Phosphatase 172 U/L (46-116); Anion Gap 11 (5-15); BUN/Creatinine Ratio 9.8 (10.0-20.0); Bilirubin, Total 0.3 mg/dL (0.2-1.0); Blood Urea Nitrogen < 5 mg/dL (9-23); Calcium 8.5 mg/dL (8.7-10.4); Carbon Dioxide 23 mmol/L (20-31); Chloride 107 mmol/L (98-107); Glucose 98 mg/dL (74-106); Potassium 3.4 mmol/L (3.5-5.1); Sodium 141 mmol/L (136-145); Total Protein 6.8 g/dL (5.7-8.2); Uric Acid 3.7 mg/dL (3.1-7.8)
[2025-08-09] MEDS: TERBUTALINE SULFATE 1 MG/ML 1ML VIAL SC SCH (16:41)
[2025-08-09] MEDS: LACTATED RINGER'S 1,000 ML IV ONE (16:41)
--- NOTE | 2025-08-09 16:41 | DVH ---
BIOPHYSICAL PROFILE HISTORY: decreased movement Comparison Study: US BIOPHYSICAL PROFILE on DOS: 08/06/25, US OB ULTRASOUND COMP GTR 14 WKS on DOS: 07/30/25, US OB TRANS VAGINAL US on DOS: 07/30/25, US BIOPHYSICAL PROFILE on DOS: 07/22/25, US BIOPHYSICAL PROFILE on DOS: 07/20/25 TECHNIQUE: Multiple real-time grayscale sonographic images through the gravid uterus of the fetus with duplex Doppler color flow and M-mode spectral analysis FINDINGS: BIOPHYSICAL PROFILE: breathing score: 2 movement score: 2 tone score: 2 Quantitative TOREY score: 2 (TOREY: 13.4 Cm.) Total score: 8/8 The cervix measures 2.6 cm and is closed Single live fetus in cephalic presentation. heart rate 145 beats per minute. Fundal/posterior grade 2 placenta without previa or abruption Single live fetus at 35 weeks 0 days Biophysical profile score 8/8 corresponding to an YUSUF of 09/13/2025 IMPRESSION: Biophysical profile score: 8/8
--- NOTE | 2025-08-10 11:56 | DVHDS2 ---
Discharge Summary Date of Admission Aug 09, 2025 at 14:57 Date of Discharge: Aug 09, 2025 Admitting Diagnosis Thirty-five week headache shortness of breath decreased movement Wounds: None Labs/Diagnostic Data: Laboratory Results Test 08/09/25 15:30 08/09/25 15:00 White Blood Count 9.2 10^3/uL (4.4-10.8) Red Blood Count 3.52 10^6/uL (4.0-5.20) Hemoglobin 8.3 g/dL (12.2-16.2) Hematocrit 26.0 % (36.0-46.0) Mean Corpuscular Volume 73.8 fL (80.0-100.0) Mean Corpuscular Hemoglobin 23.4 pg (28.0-32.0) Mean Corpuscular Hemoglobin Concent 31.7 g/dL (32.0-36.0) Red Cell Distribution Width 17.7 % (11.8-14.3) Platelet Count 331 10^3/uL (140-450) Mean Platelet Volume 6.3 fL (6.9-10.8) Neutrophils (%) (Auto) 75.9 % (37.0-80.0) Lymphocytes (%) (Auto) 16.3 % (10.0-50.0) Monocytes (%) (Auto) 7.3 % (0.0-12.0) Eosinophils (%) (Auto) 0.3 % (0.0-7.0) Basophils (%) (Auto) 0.2 % (0.0-2.0) Neutrophils # (Auto) 7.0 10 ^3/uL (1.6-8.6) Lymphocytes # (Auto) 1.5 10 ^3/uL (0.4-5.4) Monocytes # (Auto) 0.7 10 ^3/uL (0-1.3) Eosinophils # (Auto) 0 10 ^3/uL (0-0.8) Basophils # (Auto) 0 10 ^3/uL (0-0.2) Nucleated Red Blood Cells 1.0 % Prothrombin Time 10.5 sec (9.3-11.8) Prothrombin Time INR 0.99 (0.9-1.15) Activated Partial Thromboplast Time 28.5 SEC (24.5-34.5) Sodium Level 141 mmol/L (136-145) Potassium Level 3.4 mmol/L (3.5-5.1) Chloride Level 107 mmol/L (98-107) Carbon Dioxide Level 23 mmol/L (20-31) Anion Gap 11 (5-15) Blood Urea Nitrogen < 5 mg/dL (9-23) Creatinine 0.51 mg/dL (0.550-1.02) Glomerular Filtration Rate Calc 136 mL/min (>90) BUN/Creatinine Ratio 9.8 (10.0-20.0) Serum Glucose 98 mg/dL (74-106) Uric Acid 3.7 mg/dL (3.1-7.8) Calcium Level 8.5 mg/dL (8.7-10.4) Total Bilirubin 0.3 mg/dL (0.2-1.0) Aspartate Amino Transferase (AST) 17 U/L (13-40) Alanine Aminotransferase (ALT) < 9 U/L (7-40) Alkaline Phosphatase 172 U/L (46-116) Total Protein 6.8 g/dL (5.7-8.2) Albumin 3.7 g/dL (3.2-4.8) Urine Color Yellow (Yellow) Urine Clarity Turbid (Clear) Urine pH 8.0 (5.0-9.0) Urine Specific [place] 1.022 (1.001-1.035) Urine Protein 1+ (Negative) Urine Ketones Negative (Negative) Urine Blood Negative /uL (Negative) Urine Nitrite Negative (Negative) Urine Bilirubin Negative (Negative) Urine Urobilinogen 4 mg/dL (Negative) Urine Leukocyte Esterase 3+ /uL (Negative) Urine RBC 2 /hpf (0 - 4) Urine Microscopic WBC 17 /HPF (0-5) Urine Squamous Epithelial Cells Many /hpf (<5) Urine Bacteria None seen /hpf (None Seen) Urine Mucus Few (None Seen) Urine Creatinine 171.25 mg/dL (30.0-125.0) Urine Protein/Creatinine Ratio 0.17 Urine Glucose Normal mg/dL (Normal) Urine Total Protein 29.9 mg/dL (1-14) Other Laboratory Tests 08/09/25 15:30 Brief Hx & Hospital Course: Patient brought in for evaluation NST BPP and vitals as well as maternal and Consults/Reason for consult None Operations or Procedures NST BPP reassuring Condition at Discharge: Good Final Diagnosis/Problems List 35 week reassuring and maternal condition see headache seems to be sinus related no evidence PH Discharge Disposition: Home Discharge Instruct/Medications Diet: Regular Activity: Light activity Activity comment: pelvic rest, kick counts labor precautions headache precautions Follow Up/Referral: Follow up as scheduled and/or PRN worsening symptoms Medications: None Scheduled Metronidazole (Flagyl), 500 MG PO BID Nitrofurantoin Monohydrate Mac (Macrobid), 100 MG PO BID, (Reported) Vit W/ Ferrous Fumara ( One Daily), 1 TAB PO DAILY, (Reported) Discharge Statement: "Patient was advised to return to the ER or call 911 if any headaches, dizziness, shortness of breath, chest pain, abdominal pain, bleeding, fevers, or worsening of medical condition. Patient was counseled about treatment plan, medications, possible side effects, patientverbalized understanding. All questions were answered to the best of my ability. This discharge took greater then 30 minutes in planning, reviewing documentation, counseling the patient, and discussing with other team members." ASSESSMENT ASSESSMENT Assessment Visit Coding OBGYN Date of Service: Aug 09, 2025 Billing Provider: REMI ORANTES DO SPEEDER WORKER Common Visit Codes: 50085-LTU/OBS SAME DATE (LOW), 39845-OSO/OBS SAME DATE (MOD), 81513-LMC/OBS SAME DATE (HIGH) SPEEDER WORKER Procedure Codes: 62686-32- NON-STRESS TEST REMI ORANTES DO Aug 10, 2025 11:56
== END 2025-08-09 18:40 | disposition home or self-care (01) ==
LOC: LDRP 14:57
PROVIDERS: ADMIT Obstetrics & Gynecology; ATTEND Obstetrics & Gynecology
DX: O36.8130 Decreased fetal movements, third trimester, not applicable or unspecified (principal); R51.9 Headache, unspecified; R06.02 Shortness of breath; Z3A.35 35 weeks gestation of pregnancy; Z98.890 Other specified postprocedural states
CPT/HCPCS: 36415; 59025; 76819; 80053; 81001; 81002; 82570; 84156; 84550; 85025; 85610; 85730; 96360; 96361; 96372; G0378; J3105

== ENCOUNTER 2025-08-12 10:10 | Observation (INO) | payer MEDICAID ==
[~2025-08-12] VITALS: Ht 157.5 cm; Wt 63.5 kg
--- NOTE | 2025-08-12 11:11 | DVH ---
CLINICAL HISTORY: -induced hypertension. Right upper quadrant pain. COMPARISON: US BIOPHYSICAL PROFILE on DOS: 08/09/25, US BIOPHYSICAL PROFILE on DOS: 08/06/25, US OB ULTRASOUND COMP GTR 14 WKS on DOS: 07/30/25 TECHNIQUE: biophysical profile was performed. Transabdominal sonographic images of the fetus were obtained. FINDINGS: The fetus is in cephalic position. heart rate measures 137 BPM. Amniotic fluid index measures 12.8 cm. The placenta is fundal in position. Cervix appears closed. Cervical length measures 2.8 cm. BPP profile is an overall score of 8/8, with 2/2 points for breathing, with at least one episode of breathing over a 30 second duration during a 30 minute observation, 2/2 points for movements, with 3 or more discrete body or limb movements, 2/2 points for tone, with one or more episodes of extremity extension with return to flexion, or opening and closing of hand, and 2/2 points for amniotic fluid, with at least 1 pocket of amniotic fluid that measures 2 cm in 2 perpendicular planes. IMPRESSION: 1. BPP score of 8/8. 2. Cervix appears closed, measuring 2.8 cm in length.
[2025-08-12] MEDS: ACETAMINOPHEN 500 MG TAB or CAP PO ONE (11:52)
[2025-08-12] MEDS: IRON SUCROSE COMPLEX 110 ML IV STA (12:42)
--- NOTE | 2025-08-12 19:09 | DVHDS2 ---
Physician Discharge Progress N Final Diagnosis: iron deficiency anemia r/o preeclampsia Operations or Procedures: Operations or Procedures S: 20yo IUP@35.3wks presents to OB triage from Dr. Clemens's office with c/o headache that Tylenol didn't help 5 days ago and RUQ pain. PNC with Dr. Clemens, complicated by iron deficiency anemia (hgb of 8.3). Takes PNV and iron supplement. O: Pt was in OB triage 3 days ago and was ruled out for preeclampsia (see lab results). VSS, normotensive, per RN NST reactive per RN Tylenol 1000mg PO given, helped headache a little bit per pt IV iron infusion given PO hydration urine culture from last week reviewed, no UTI. A: 20yo IUP@35.3wks iron deficiency anemia r/o preeclampsia P: D/C home FKC/PTL/preE precautions reviewed Continue with PNV and iron supplements. Drink 1 gallon of water a day. Discussed other headache causes like dehydration and anemia. Plan is to get IV iron infusion (3x a week) f/u in 2 days with 24 hour urine collection and IV iron infusion (3x a week). Dr. Clemens consulted, agrees with POC. Other Interventions Other Interventions [place] [address] Ph: [phone] DIAGNOSTIC IMAGING Diagnostic Imaging Report : [id number] Signed PATIENT: VITA DAWKINS MACCT: [id number] UNIT: [id number] : 2005 LOC: [facility] ROOM / BED: TRIAGE3 / A AGE / SEX: 20 / F ADM STATUS: ADM IN SERVICE 1026 ORDERING PHYSICIAN: OLAF TRACEY CNM PROCEDURE(s): BPP - BIOPHYSICAL PROFILE REASON: RUQ PAIN [facility] ORDER NUMBER(s): [id number], ACCESSION NUMBER(s): [id number] CLINICAL HISTORY: -induced hypertension. Right upper quadrant pain. COMPARISON: US BIOPHYSICAL PROFILE on DOS: 08/09/25, US BIOPHYSICAL PROFILE on DOS: 08/06/25, US OB ULTRASOUND COMP GTR 14 WKS on DOS: 07/30/25 TECHNIQUE: biophysical profile was performed. Transabdominal sonographic images of the fetus were obtained. FINDINGS: The fetus is in cephalic position. heart rate measures 137 BPM. Amniotic fluid index measures 12.8 cm. The placenta is fundal in position. Cervix appears closed. Cervical length measures 2.8 cm. BPP profile is an overall score of 8/8, with 2/2 points for breathing, with at least one episode of breathing over a 30 second duration during a 30 minute observation, 2/2 points for movements, with 3 or more discrete body or limb movements, 2/2 points for tone, with one or more episodes of extremity extension with return to flexion, or opening and closing of hand, and 2/2 points for amniotic fluid, with at least 1 pocket of amniotic fluid that measures 2 cm in 2 perpendicular planes. IMPRESSION: 1. BPP score of 8/8. 2. Cervix appears closed, measuring 2.8 cm in length. ATED BY: NORBERT VELIZ DO DICTATED DATE/TIME: 08/12/25 110 SIGNED BY: NORBERT VELIZ DO SIGNED DATE/TIME: 08/12/25 1109 CC: Condition on Discharge: Stable Disposition: Home Discharge Instructions: Diet: Regular Activity: No Restrictions, As Tolerated Medications: see med list Follow Up Care: Specialist: f/u in 2 days with 24 hour urine collection and IV iron infusion (3x a week). Discharge Statement: "Patient was advised to return to the ER or call 911 if any headaches, dizziness, shortness of breath, chest pain, abdominal pain, bleeding, fevers, or worsening of medical condition. Patient was counseled about treatment plan, medications, possible side effects, patientverbalized understanding. All questions were answered to the best of my ability. This discharge took greater then 30 minutes in planning, reviewing documentation, counseling the patient, and discussing with other team members." Visit Coding OBGYN Date of Service: Aug 12, 2025 Billing Provider: OLAF TRACEY CNM WAISTLINE JOINER LOCKSTITCH Common Visit Codes: [id number]-[id number] OBS CARE (HIGH) WAISTLINE JOINER LOCKSTITCH Procedure Codes: 87885-61- NON-STRESS TEST OLAF TRACEY CNM Aug 12, 2025 19:09
== END 2025-08-12 14:01 | disposition home or self-care (01) ==
LOC: LDRP 10:10 → UNDOADMOB 10:10 → LDRP 10:29 → UNDODISOB 14:01
PROVIDERS: ADMIT Obstetrics & Gynecology; ATTEND Obstetrics & Gynecology
DX: O13.3 Gestational [pregnancy-induced] hypertension without significant proteinuria, third trimester (principal); O99.013 Anemia complicating pregnancy, third trimester; D50.9 Iron deficiency anemia, unspecified; Z3A.35 35 weeks gestation of pregnancy; Z98.890 Other specified postprocedural states
CPT/HCPCS: 59025; 76819; 81002; 94760; 96365; G0378; J1756; 96360

== ENCOUNTER 2025-08-13 06:37 | Observation (INO) | payer MEDICAID ==
--- NOTE | 2025-08-14 09:53 | DVH ---
BIOPHYSICAL PROFILE HISTORY: PIH rule out/ Anemia Comparison Study: US BIOPHYSICAL PROFILE on DOS: 08/12/25, US BIOPHYSICAL PROFILE on DOS: 08/09/25, US BIOPHYSICAL PROFILE on DOS: 08/06/25, US OB ULTRASOUND COMP GTR 14 WKS on DOS: 07/30/25, US OB TRANS VAGINAL US on DOS: 07/30/25 TECHNIQUE: Multiple real-time grayscale sonographic images through the gravid uterus of the fetus with duplex Doppler color flow and M-mode spectral analysis FINDINGS: BIOPHYSICAL PROFILE: breathing score: 2 movement score: 2 tone score: 2 Quantitative TOREY score: 2 (TOREY: 12.1 Cm.) Total score: 8/8 The cervix is unremarkable Single live fetus in cephalic presentation. heart rate 146 beats per minute. Posterior placenta without previa or abruption IMPRESSION: Biophysical profile score: 8/
[2025-08-14 12:21] LABS: Protein, Urine 22.5 mg/dL (1-14)
[2025-08-14 12:22] LABS: Protein, Urine 39.3 mg/dL (1-14)
--- NOTE | 2025-08-14 15:02 | DVHDS2 ---
Physician Discharge Progress N Final Diagnosis: PIH 35WKS Operations or Procedures: Operations or Procedures NST REACTIVE REVIWED,SAYO Condition on Discharge: Good Disposition: Home Discharge Instructions: Diet: Regular Activity: Light activity Medications: NA Follow Up Care: Specialist: 3D Discharge Statement: "Patient was advised to return to the ER or call 911 if any headaches, dizziness, shortness of breath, chest pain, abdominal pain, bleeding, fevers, or worsening of medical condition. Patient was counseled about treatment plan, medications, possible side effects, patientverbalized understanding. All questions were answered to the best of my ability. This discharge took greater then 30 minutes in planning, reviewing documentation, counseling the patient, and discussing with other team members." Visit Coding OBGYN Date of Service: Aug 14, 2025 Billing Provider: RADHA SALINAS DO BOBBIN LOOSE END FINDER Common Visit Codes: [id number] OBS CARE (HIGH) BOBBIN LOOSE END FINDER Procedure Codes: 81926-94- NON-STRESS TEST RADHA SALINAS DO Aug 14, 2025 15:02
[2025-08-14 15:04] LABS: 24 Hr. Total Protein, Urine 157.5 mg/24 Hr (<149.1); Urine Total Volume, 24 Hours 700.0 mL
== END 2025-08-14 11:30 | disposition home or self-care (01) ==
LOC: LDRP 08-14 08:57
PROVIDERS: ADMIT Obstetrics & Gynecology; ATTEND Obstetrics & Gynecology
DX: O13.3 Gestational [pregnancy-induced] hypertension without significant proteinuria, third trimester (principal); Z3A.35 35 weeks gestation of pregnancy; Z98.890 Other specified postprocedural states
CPT/HCPCS: 59025; 76819; 81002; 82570; 84156; 94760; G0378

== ENCOUNTER 2025-08-16 16:44 | Observation (INO) | payer MEDICAID ==
[~2025-08-16] VITALS: Ht 160 cm; Wt 74.4 kg
[2025-08-16 17:45] LABS: Urine Protein, UAD 1+ (Negative)
[2025-08-16] MEDS: LACTATED RINGER'S 1,000 ML IV SCH (17:48)
[2025-08-16] MEDS: ceFAZolin 2 GM/D5W50ml 50 ML IV ONE (17:48)
[2025-08-16] MEDS ORDERED: D5W/LACTATED RINGERS 500 ML IV ONE (19:15)
--- NOTE | 2025-08-16 19:35 | DVHDS2 ---
Physician Discharge Progress N Final Diagnosis: Stable condition False Labor Problems List: (1) 36 weeks gestation of (2) Headache in (3) Dehydration during (4) Multigravida in third trimester (5) Back pain affecting Operations or Procedures: Operations or Procedures IVF hydration LR and D5LR 2gm Ancef IVPB Commentary: Commentary 08/16/2025 Subjective Patient is 20 y/o (1,0,0,1) IUP 36w0d LMP: 12/07/2024 YUSUF: 09/13/2025 Chief Complaint of H/A that she has had for two weeks on and off, and back pain that started today. She get regular PNC with Dr Clemens and MIGRATORY FARM HAND Dav Comes to the center for check up for PRE-E Was prescribed Procardia for labor, but does not take prescribed medication Stopped taking Tylenol for her H/A, stated " I stopped taking it because it doesn't do anything." Also reported that she went to [facility] and was given Reglan for her H/A and stated " Reglan didn't do anything either for my H/A . She reports her H/A pain 05/04. 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 Denies PSH Denies Medications: PNV, Social Hist: Denies Objective REVIEW OF SYSTEM Constitutional: No symptom reported Ears, Nose, & Throat: No symptom reported Eyes: No symptom reported Pulmonary/Respiratory: No symptom reported Cardiovascular: No symptom reported Gastrointestinal: No symptom reported Genitourinary: No symptom reported Musculoskeletal: Back pain near her lower left kidney Skin: No symptom reported Psychiatric: No symptom reported Endocrine: No symptom reported Hematologic/Lymphatic: No symptom reported Heart Rate : 125 Variability : Moderate Accels: 15 bpm X 15 bpm Decel's: none noted Uterine: palpated soft and non tender Contractions : every 10 min with uterine irritability noted Tracing Cat 1 Assessment Urinalysis Test 08/16/25 16:45 Urine Color Yellow (Yellow) Urine Clarity Clear (Clear) Urine pH 7.0 (5.0-9.0) Urine Specific [place] 1.026 (1.001-1.035) Urine Protein 1+ (Negative) H Urine Ketones 1+ (Negative) H Urine Blood Negative /uL (Negative) Urine Nitrite Negative (Negative) Urine Bilirubin Negative (Negative) Urine Urobilinogen 6 mg/dL (Negative) Urine Leukocyte Esterase 1+ /uL (Negative) Urine RBC 1 /hpf (0 - 4) Urine Microscopic WBC 3 /HPF (0-5) Urine Squamous Epithelial Cells Few /hpf (<5) Urine Bacteria None seen /hpf (None Seen) Urine Mucus Few (None Seen) Urine Glucose 1+ mg/dL (Normal) H IUP 36w0d Dehydration Lower back pain with manageable H/A Will send Urine for Culture and Sensitivity Ancef 1 gm given IVP IVF 1000 ML of LR 500 ML D5LR Refused Tylenol and Reglan Reassessment @ 2009 IVF hydration 1000 ml of LR Refused D5LR and signed AMA Desires to go home Tracing Cat 1 Plan Discharge patient to home Follow up with your OB Provider within 24 hours Pt advised to go to ER if pain persists or increases in intensity 3rd trimester emergency S&S FMC, PTL & pre-eclampsia precautions reviewed with pt; advised to seek health care if any symptom including but not limited to any of the above. Condition on Discharge: Stable Disposition: Home Discharge Instructions: Diet: Regular Activity: No Restrictions, As Tolerated Medications: Vitamin Follow Up Care: Discharge Statement: Follow up with your OB Provider within 24 hours Pt advised to go to ER if pain persists or increases in intensity 3rd trimester emergency S&S F[facility], labbor & pre-eclampsia precautions reviewed with pt; advised to seek health care if any symptom including but not limited to any of the above. Discharge Care Plan Problem Pain, Increase in fluid intake, Risk for infection Goals Pain relieved Know Disease Process Initiate lifestyle change Adequate fluid volume Adequate fluid volume Remain free of infection Instructions Take Rx medications, Notify MD of any issues, Keep list of meds w/ you See pt D/C handouts Causes of fluid excess Visit Coding OBGYN Date of Service: Aug 16, 2025 Billing Provider: ROGER SNOW CNM [facility]ENTER COORDINATOR Common Visit Codes: [id number] CARE DISCHARGE, 42178-ANSODUE INP/OBS CARE (MOD) ROGER SNOW CNMNov 2024 19:35
== END 2025-08-16 20:17 | disposition left against medical advice (07) ==
LOC: LDRP 16:44
PROVIDERS: ADMIT Obstetrics & Gynecology; ATTEND Obstetrics & Gynecology
DX: O47.03 False labor before 37 completed weeks of gestation, third trimester (principal); O99.283 Endocrine, nutritional and metabolic diseases complicating pregnancy, third trimester; E86.0 Dehydration; Z3A.36 36 weeks gestation of pregnancy; Z79.899 Other long term (current) drug therapy; Z98.890 Other specified postprocedural states
CPT/HCPCS: 59025; 81001; 81002; 94760; 96365; G0378; 96360

== ENCOUNTER 2025-08-20 06:59 | Observation (INO) | payer MEDICAID ==
--- NOTE | 2025-08-20 13:03 | DVHDS2 ---
Physician Discharge Progress N Final Diagnosis: anemia labor check Operations or Procedures: Operations or Procedures nst reactive reviwed,sono Condition on Discharge: Good Disposition: Home Discharge Instructions: Diet: Regular Activity: No Restrictions, As Tolerated Medications: na Follow Up Care: Specialist: 1w Discharge Statement: "Patient was advised to return to the ER or call 911 if any headaches, dizziness, shortness of breath, chest pain, abdominal pain, bleeding, fevers, or worsening of medical condition. Patient was counseled about treatment plan, medications, possible side effects, patientverbalized understanding. All questions were answered to the best of my ability. This discharge took greater then 30 minutes in planning, reviewing d ocumentation, counseling the patient, and discussing with other team members." Visit Coding OBGYN Date of Service: Aug 20, 2025 Billing Provider: RADHA SALINAS DO TRUSS PULLER HELPER Common Visit Codes: [id number] OBS CARE (HIGH) TRUSS PULLER HELPER Procedure Codes: 54735-42- NON-STRESS TEST RADHA SALINAS DO Aug 20, 2025 13:03
--- NOTE | 2025-08-20 13:06 | DVH ---
BIOPHYSICAL PROFILE HISTORY: Low hemoglobin and PTL TECHNIQUE: Multiple transabdominal real-time grayscale sonographic images through the gravid uterus of the fetus with duplex Doppler color flow and M-mode spectral analysis FINDINGS: BIOPHYSICAL PROFILE: breathing score: 2 movement score: 2 tone score: 2 Quantitative TOREY score: 2 (TOREY: 14.42 Cm.) Total score: 8/8 The cervix 2.86 cm and appears closed. Single live fetus in cephalic presentation. heart rate 127 beats per minute. Posterior fundal Grade 2 placenta without previa or abruption Single live fetus at 36 weeks 4 days Biophysical profile score 8/8 corresponding to an YUSUF of 09/13/2025 Estimated weight not calculated IMPRESSION: 1. Biophysical profile score: 8/8 2. Nuchal cord 3. Cervix measures 2.86 cm long and appears closed.
== END 2025-08-20 13:12 | disposition home or self-care (01) ==
LOC: LDRP 11:55 → UNDOADMOB 11:55 → LDRP 12:03
PROVIDERS: ADMIT Obstetrics & Gynecology; ATTEND Obstetrics & Gynecology
DX: O99.013 Anemia complicating pregnancy, third trimester (principal); D64.9 Anemia, unspecified; Z3A.36 36 weeks gestation of pregnancy; Z98.890 Other specified postprocedural states
CPT/HCPCS: 59025; 76819; 81002; 94760; A4649; G0378

== ENCOUNTER 2025-08-22 12:00 | Observation (INO) | payer MEDICAID ==
[~2025-08-22 12:00] MED LIST changes: +ACET-1304 PO
--- NOTE | 2025-08-22 12:49 | DVH ---
BIOPHYSICAL PROFILE HISTORY: Decrease Movement TECHNIQUE: Multiple transabdominal real-time grayscale sonographic images through the gravid uterus of the fetus with duplex Doppler color flow and M-mode spectral analysis FINDINGS: BIOPHYSICAL PROFILE: breathing score: 2 movement score: 2 tone score: 2 Quantitative TOREY score: 2 (TOREY: 10.2 cm, mvp: 5.7 cm.) Total score: 8/8 The cervix N/V Single live fetus in cephalic presentation. heart rate 144 beats per minute. Posterior Grade 2 placenta without previa or abruption Single live fetus at 36 weeks 6 days Biophysical profile score 8/8 corresponding to an YUSUF of 09/13/2025 Estimated weight not given. IMPRESSION: 1. Biophysical profile score: 8/8. 2. No other measurements given
--- NOTE | 2025-08-23 11:55 | DVHDS2 ---
Physician Discharge Progress N Final Diagnosis: decreased [id number] Operations or Procedures: Operations or Procedures nst reactive reviwed,sono Condition on Discharge: Good Disposition: Home Discharge Instructions: Diet: Regular Activity: No Restrictions, As Tolerated Follow Up/Referral: as scheduled Medications: na Follow Up Care: Specialist: 3d Discharge Statement: "Patient was advised to return to the ER or call 911 if any headaches, dizziness, shortness of breath, chest pain, abdominal pain, bleeding, fevers, or worsening of medical condition. Patient was counseled about treatment plan, medications, possible side effects, patientverbalized understanding. All questions were answered to the best of my ability. This discharge took greater then 30 minutes in planning, reviewing documentation, counseling the patient, and discussing with other team members." Visit Coding OBGYN Date of Service: Aug 22, 2025 Billing Provider: RADHA SALINAS DO MEDIA PRODUCER Common Visit Codes: 01099-[id number] OBS CARE (HIGH) MEDIA PRODUCER Procedure Codes: 48294-83- NON-STRESS TEST RADHA SALINAS DO Aug 23, 2025 11:55
== END 2025-08-22 13:07 | disposition home or self-care (01) ==
LOC: LDRP 12:00
PROVIDERS: ADMIT Obstetrics & Gynecology; ATTEND Obstetrics & Gynecology
DX: O36.8130 Decreased fetal movements, third trimester, not applicable or unspecified (principal); Z3A.36 36 weeks gestation of pregnancy; Z79.899 Other long term (current) drug therapy; Z98.890 Other specified postprocedural states
CPT/HCPCS: 59025; 76819; 81002; 94760; A4649; G0378

== ENCOUNTER 2025-08-25 06:04 | Observation (INO) | payer MEDICAID ==
--- NOTE | 2025-08-25 13:53 | DVH ---
BIOPHYSICAL PROFILE HISTORY: Nuchal Comparison Study: US BIOPHYSICAL PROFILE on DOS: 08/22/25, US BIOPHYSICAL PROFILE on DOS: 08/20/25, US BIOPHYSICAL PROFILE on DOS: 08/14/25, US BIOPHYSICAL PROFILE on DOS: 08/12/25, US BIOPHYSICAL PROFILE on DOS: 08/09/25 TECHNIQUE: Multiple real-time grayscale sonographic images through the gravid uterus of the fetus with duplex Doppler color flow and M-mode spectral analysis FINDINGS: BIOPHYSICAL PROFILE: breathing score: 2 movement score: 2 tone score: 2 Quantitative TOREY score: 2 (TOREY: 10.9 Cm.) Total score: 8 The cervix is not visualized Single live fetus in cephalic presentation. heart rate 138 beats per minute. Grade 2, posterior placenta without previa or abruption IMPRESSION: Biophysical profile score: 8
--- NOTE | 2025-08-25 22:21 | DVHDS2 ---
Discharge Summary Date of Admission Aug 25, 2025 at 12:50 Date of Discharge: Aug 25, 2025 Admitting Diagnosis 37 weeks hx nuchal cord ; none seen on US today Wounds: none Labs/Diagnostic Data: none Brief Hx & Hospital Course: NST BPP reassuring Consults/Reason for consult none Operations or Procedures NST BPP Condition at Discharge: Good Final Diagnosis/Problems List 37+ weeks reasuring Discharge Disposition: Home Discharge Instruct/Medications Diet: Regular Activity: No Restrictions, As Tolerated Activity comment: Kick counts labor precautions Follow Up/Referral: Follow up in [facility] for any related concerns. Keep all scheduled appointments with Dr. Clemens Scheduled Acetaminophen (Tylenol Extra Strength Fo), 1,000 MG PO BID Metronidazole (Flagyl), 500 MG PO BID Nitrofurantoin Monohydrate Mac (Macrobid), 100 MG PO BID, (Reported) Vit W/ Ferrous Fumara ( One Daily), 1 TAB PO DAILY, (Reported) Discharge Statement: "Patient was advised to return to the ER or call 911 if any headaches, dizziness, shortness of breath, chest pain, abdominal pain, bleeding, fevers, or worsening of medical condition. Patient was counseled about treatment plan, medications, possible side effects, patientverbalized understanding. All questions were answered to the best of my ability. This discharge took greater then 30 minutes in planning, reviewing documentation, counseling the patient, and discussing with other team members." ASSESSMENT ASSESSMENT Assessment Visit Coding OBGYN Date of Service: Aug 25, 2025 Billing Provider: REMI ORANTES DO METHODS TIME ANALYST Common Visit Codes: 59073-QBO/OBS SAME DATE (MOD), 71237-NFV/OBS SAME DATE (HIGH), 39349-DNG/OBS DISCH DAY <30MIN METHODS TIME ANALYST Procedure Codes: 03626-78- NON-STRESS TEST REMI ORANTES DO Aug 25, 2025 22:21
== END 2025-08-25 14:25 | disposition home or self-care (01) ==
LOC: LDRP 12:50
PROVIDERS: ADMIT Obstetrics & Gynecology; ATTEND Obstetrics & Gynecology
DX: O62.9 Abnormality of forces of labor, unspecified (principal); Z3A.37 37 weeks gestation of pregnancy; Z98.890 Other specified postprocedural states
CPT/HCPCS: 59025; 76819; 81002; 94760; A4649; G0378

== ENCOUNTER 2025-08-26 09:47 | Observation (INO) | payer MEDICAID ==
[2025-08-26 10:51] LABS: Hematocrit 30.7 % (36.0-46.0); Hemoglobin 9.7 g/dL (12.2-16.2); Mean Corpuscular Hemoglobin 24.6 pg (28.0-32.0); Mean Corpuscular Volume 77.6 fL (80.0-100.0); Nucleated Red Blood Cells % 0.1 %
[2025-08-26 11:00] LABS: Urine Protein, UAD TRACE (Negative)
--- NOTE | 2025-08-26 11:22 | DVH ---
BIOPHYSICAL PROFILE HISTORY: Anemia TECHNIQUE: Multiple transabdominal real-time grayscale sonographic images through the gravid uterus of the fetus with duplex Doppler color flow and M-mode spectral analysis FINDINGS: BIOPHYSICAL PROFILE: breathing score: 2 movement score: 2 tone score: 2 Quantitative TOREY score: 2 (TOREY: 10.6 Cm.) Total score: 8 The cervix was not seen Single live fetus in cephalic presentation. heart rate 137 beats per minute. Grade II posterior placenta without previa or abruption IMPRESSION: Biophysical profile score: 8/8 Cervix is closed measuring 3.9 cm
--- NOTE | 2025-08-26 14:25 | DVHDS2 ---
Physician Discharge Progress N Final Diagnosis: testing for anemia Operations or Procedures: Operations or Procedures 20yo IUP@37.3wks VSS NST reactive FKC/PTL/PreE precautions reviewed. Dr. Clemens consulted, agrees with POC. Continue with PO iron supplements. Laboratory Tests Test 08/26/25 10:20 08/26/25 10:22 Range/Units Urine Color Yellow Yellow Urine Clarity Turbid H Clear Urine pH 6.5 5.0-9.0 Urine Specific [place] 1.024 1.001-1.035 Urine Protein Trace H Negative Urine Ketones Trace Negative Urine Blood Negative Negative /uL Urine Nitrite Negative Negative Urine Bilirubin Negative Negative Urine Urobilinogen 3 H Negative mg/dL Urine Leukocyte Esterase 3+ Negative /uL Urine RBC 5 0 - 4 /hpf Urine Microscopic WBC 34 H 0-5 /HPF Urine Squamous Epithelial Cells Few <5 /hpf Urine Bacteria Few H None Seen /hpf Urine Mucus Few None Seen Urine Glucose Trace Normal mg/dL White Blood Count 7.8 4.4-10.8 10^3/uL Red Blood Count 3.95 L 4.0-5.20 10^6/uL Hemoglobin 9.7 L 12.2-16.2 g/dL Hematocrit 30.7 L 36.0-46.0 % Mean Corpuscular Volume 77.6 L 80.0-100.0 fL Mean Corpuscular Hemoglobin 24.6 L 28.0-32.0 pg Mean Corpuscular Hemoglobin Concent 31.6 L 32.0-36.0 g/dL Red Cell Distribution Width 24.4 H 11.8-14.3 % Platelet Count 379 140-450 10^3/uL Mean Platelet Volume 6.4 L 6.9-10.8 fL Neutrophils (%) (Auto) 74.4 37.0-80.0 % Lymphocytes (%) (Auto) 16.7 10.0-50.0 % Monocytes (%) (Auto) 8.3 0.0-12.0 % Eosinophils (%) (Auto) 0.5 0.0-7.0 % Basophils (%) (Auto) 0.1 0.0-2.0 % Neutrophils # (Auto) 5.8 1.6-8.6 10 ^3/uL Lymphocytes # (Auto) 1.3 0.4-5.4 10 ^3/uL Monocytes # (Auto) 0.6 0-1.3 10 ^3/uL Eosinophils # (Auto) 0 0-0.8 10 ^3/uL Basophils # (Auto) 0 0-0.2 10 ^3/uL Nucleated Red Blood Cells 0.1 % Treponema pallidum Antibody Non-reactive Negative Other Interventions Other Interventions [facility] [address] [address] Ph: [phone] DIAGNOSTIC IMAGING Diagnostic Imaging Report : [id number] Signed PATIENT: VITA DAWKINS MACCT: [id number] UNIT: [id number] : 2005 LOC: [facility] ROOM / BED: [facility] / A AGE / SEX: 20 / F ADM STATUS: ADM IN SERVICE 1006 ORDERING PHYSICIAN: OLAF TRACEY CNM PROCEDURE(s): BPP - BIOPHYSICAL PROFILE REASON: Anemia ORDER NUMBER(s): [id number], ACCESSION NUMBER(s): [id number] BIOPHYSICAL PROFILE HISTORY: Anemia TECHNIQUE: Multiple transabdominal real-time grayscale sonographic images through the gravid uterus of the fetus with duplex Doppler color flow and M-mode spectral analysis FINDINGS: BIOPHYSICAL PROFILE: breathing score: 2 movement score: 2 tone score: 2 Quantitative TOREY score: 2 (TOREY: 10.6 Cm.) Total score: 8 The cervix was not seen Single live fetus in cephalic presentation. heart rate 137 beats per minute. Grade II posterior placenta without previa or abruption IMPRESSION: Biophysical profile score: 8/8 Cervix is closed measuring 3.9 cm ATED BY: TOBIN HESTER MD DICTATED DATE/TIME: 08/26/25 1120 SIGNED BY: TOBIN HESTER MD SIGNED DATE/TIME: 08/26/25 1120 CC: Condition on Discharge: Stable Disposition: Home Discharge Instructions: Diet: Regular Activity: No Restrictions, As Tolerated Medications: see med list Follow Up Care: Specialist: f/u in 1wk Discharge Statement: "Patient was advised to return to the ER or call 911 if any headaches, dizziness, shortness of breath, chest pain, abdominal pain, bleeding, fevers, or worsening of medical condition. Patient was counseled about treatment plan, medications, possible side effects, patientverbalized understanding. All questions were answered to the best of my ability. This discharge took greater then 30 minutes in planning, reviewing documentation, counseling the patient, and discussing with other team members." Visit Coding OBGYN Date of Service: Aug 26, 2025 Billing Provider: OLAF TRACEY CNM MASTER BREWER Common Visit Codes: 30523-JHESNSB OBS CARE (HIGH) MASTER BREWER Procedure Codes: 07591-26- NON-STRESS TEST OLAF TRACEY CNM Aug 26, 2025 14:25
== END 2025-08-26 12:12 | disposition home or self-care (01) ==
LOC: LDRP 09:47
PROVIDERS: ADMIT Obstetrics & Gynecology; ATTEND Obstetrics & Gynecology
DX: O99.013 Anemia complicating pregnancy, third trimester (principal); D64.9 Anemia, unspecified; Z3A.37 37 weeks gestation of pregnancy; Z98.890 Other specified postprocedural states
CPT/HCPCS: 36415; 59025; 76819; 81001; 81002; 85025; 86780; 86850; 86900; 86901; A4649; G0378

== ENCOUNTER 2025-08-31 08:32 | Observation (INO) | payer MEDICAID ==
--- NOTE | 2025-08-31 10:10 | DVH ---
CLINICAL HISTORY: cramping COMPARISON: US BIOPHYSICAL PROFILE on DOS: 08/26/25, US BIOPHYSICAL PROFILE on DOS: 08/25/25, US BIOPHYSICAL PROFILE on DOS: 08/22/25 TECHNIQUE: biophysical profile was performed. Transabdominal sonographic images of the fetus were obtained. FINDINGS: The fetus is in cephalic position. heart rate measures 148 BPM. Amniotic fluid index measures 19.4 cm. The placenta is fundal/posterior in position without visualized evidence of previa or abruption. BPP profile is an overall score of 8/8, with 2/2 points for breathing, with at least one episode of breathing over a 30 second duration during a 30 minute observation, 2/2 points for movements, with 3 or more discrete body or limb movements, 2/2 points for tone, with one or more episodes of extremity extension with return to flexion, or opening and closing of hand, and 2/2 points for amniotic fluid, with at least 1 pocket of amniotic fluid that measures 2 cm in 2 perpendicular planes. IMPRESSION: BPP score of 8/8.
--- NOTE | 2025-08-31 15:18 | DVHDS2 ---
Physician Discharge Progress N Final Diagnosis: IUP 38 wk, false labor Operations or Procedures: Operations or Procedures NST/BPP/TOREY all WNL NOT in labor PATIENT: VITA DAWKINS MACCT: [id number] UNIT: [id number] : 2005 LOC: [facility] ROOM / BED: TRIAGE1 / A AGE / SEX: 20 / F ADM STATUS: ADM IN SERVICE 7 ORDERING PHYSICIAN: TASIA ROBLEDO DO PROCEDURE(s): BPP - BIOPHYSICAL PROFILE REASON: cramping ORDER NUMBER(s): [id number], ACCESSION NUMBER(s): [id number] CLINICAL HISTORY: cramping COMPARISON: US BIOPHYSICAL PROFILE on DOS: 08/26/25, US BIOPHYSICAL PROFILE on DOS: 08/25/25, US BIOPHYSICAL PROFILE on DOS: 08/22/25 TECHNIQUE: biophysical profile was performed. Transabdominal sonographic images of the fetus were obtained. FINDINGS: The fetus is in cephalic position. heart rate measures 148 BPM. Amniotic fluid index measures 19.4 cm. The placenta is fundal/posterior in position without visualized evidence of previa or abruption. BPP profile is an overall score of 8/8, with 2/2 points for breathing, with at least one episode of breathing over a 30 second duration during a 30 minute observation, 2/2 points for movements, with 3 or more discrete body or limb movements, 2/2 points for tone, with one or more episodes of extremity extension with return to flexion, or opening and closing of hand, and 2/2 points for amniotic fluid, with at least 1 pocket of amniotic fluid that measures 2 cm in 2 perpendicular planes. IMPRESSION: BPP score of 8/8. ATED BY: JEAN MARIE VELIZ DO DICTATED DATE/TIME: 08/31/25 1008 Condition on Discharge: Stable Disposition: Home Discharge Instructions: Diet: Regular Activity: No Restrictions, As Tolerated Follow Up/Referral: Follow up with Dr. Clemens on Monday in the clinic as scheduled. Medications: NA Follow Up Care: Discharge Statement: "Patient was advised to return to the ER or call 911 if any headaches, d izziness, shortness of breath, chest pain, abdominal pain, bleeding, fevers, or worsening of medical condition. Patient was counseled about treatment plan, medications, possible side effects, patientverbalized understanding. All questions were answered to the best of my ability. This discharge took greater then 30 minutes in planning, reviewing documentation, counseling the patient, and discussing with other team members." Visit Coding OBGYN Date of Service: Aug 31, 2025 Billing Provider: TASIA ROBLEDO DO CORPORATE SECURITY OFFICER Common Visit Codes: 61974-[id number] INP/OBS CARE(HIGH) CORPORATE SECURITY OFFICER Procedure Codes: 71997-80- NON-STRESS TEST TASIA ROBLEDO DO Aug 31, 2025 15:18
== END 2025-08-31 10:47 | disposition home or self-care (01) ==
LOC: LDRP 08:32
PROVIDERS: ADMIT Obstetrics & Gynecology; ATTEND Obstetrics & Gynecology
DX: O62.9 Abnormality of forces of labor, unspecified (principal); Z3A.38 38 weeks gestation of pregnancy; Z79.899 Other long term (current) drug therapy; Z98.890 Other specified postprocedural states
CPT/HCPCS: 59025; 76819; 81002; 82948; 82962; 87086; 94760; A4649; G0378

== ENCOUNTER 2025-09-01 23:38 | Observation (INO) | payer MEDICAID ==
[~2025-09-01] VITALS: Ht 160 cm; Wt 74.4 kg
--- NOTE | 2025-09-05 14:13 | DVHDS2 ---
Physician Discharge Progress N Final Diagnosis: abd pain 38wks Operations or Procedures: Operations or Procedures nst reactive reviwed,sono Condition on Discharge: Good Disposition: Home Discharge Instructions: Diet: Regular Activity: No Restrictions, As Tolerated Medications: na Follow Up Care: Specialist: 1w Discharge Statement: "Patient was advised to return to the ER or call 911 if any headaches, dizziness, shortness of breath, chest pain, abdominal pain, bleeding, fevers, or worsening of medical condition. Patient was counseled about treatment plan, medications, possible side effects, patientverbalized understanding. All questions were answered to the best of my ability. This discharge took greater then 30 minutes in planning, reviewing docum entation, counseling the patient, and discussing with other team members." Visit Coding OBGYN Date of Service: Sep 01, 2025 Billing Provider: RADHA SALINAS DO BRICK GRADER Common Visit Codes: 62323-[id number] OBS CARE (HIGH) BRICK GRADER Procedure Codes: 06168-07- NON-STRESS TEST RADHA SALINAS DO Sep 05, 2025 14:13
== END 2025-09-02 00:59 | disposition home or self-care (01) ==
LOC: LDRP 23:38
PROVIDERS: ADMIT Obstetrics & Gynecology; ATTEND Obstetrics & Gynecology
DX: O26.893 Other specified pregnancy related conditions, third trimester (principal); R10.9 Unspecified abdominal pain; Z3A.38 38 weeks gestation of pregnancy; Z98.890 Other specified postprocedural states
CPT/HCPCS: 59025; 81002; 94760; A4649; G0378

== ENCOUNTER 2025-09-05 13:50 | Inpatient (IN) | payer MEDICAID ==
[~2025-09-05] VITALS: Ht 160 cm; Wt 73.9 kg
[2025-09-05] MEDS ORDERED: BUTORPHANOL TARTRATE 2 MG/1 ML VIAL IV PRN (14:15)
[2025-09-05] MEDS ORDERED: TERBUTALINE SULFATE 1 MG/ML 1ML VIAL SC PRN (14:15)
[2025-09-05] MEDS ORDERED: LACT. RINGERS/OXYTOCIN 20UNITS 1,000 ML IV SCH (14:15)
[2025-09-05] MEDS: LACTATED RINGER'S 1,000 ML IV SCH (15:03)
--- NOTE | 2025-09-05 15:04 | DVHHP2 ---
OB CC & HPI Date Date of Admission: Sep 05, 2025 Patient Identification: : 2 Para: 1 EDC: Sep 13, 2025 EGA: 39WKS Chief Complaints: Reason for admission: induction of labor Admission Nurse Assessment Rev: No History of Present Complaints PT IS ADMITTED FOR IOL PER HER REQUEST .PT HAS BEEN EXTREMELY UNCOMFORTABLE WITH BACK PAIN AND SCIATICA Past Medical History Cardiac: No pertinent Hx Pulmonary: No pertinent Hx Central Nervous System: No pertinent Hx GI: No pertinent Hx Hemotology/Oncology: No pertinent Hx Hepatobiliary: No pertinent Hx Psychiatric: No pertinent Hx Musculoskeletal: No pertinent Hx Rheumotologic: No pertinent Hx Infectious Disease: No peritnent Hx ENT: No pertinent Hx Renal/: No pertinent Hx Endocrine: No pertinent Hx Dermatology: No pertinent Hx Past Surgical History: No pertinent Hx OB History OB History Care: Good Care Ultrasounds: Normal mid trimester US Obstetrical Complications: None Medical Complications: None Allergies: Coded Allergies: NO KNOWN ALLERGIES (Unverified , 03/24/25) Home Meds Active Scripts Acetaminophen (Tylenol Extra Strength Fo) 500 Mg Tab, 1000 MG PO BID, #30 TAB Prov:DEVON BARRON 07/30/25 Metronidazole (Flagyl) 500 Mg Tab, 500 MG PO BID for 7 Days, #14 TAB Prov:OLAF TRACEY CNM 07/15/25 Reported Medications Nitrofurantoin Monohydrate Mac (Macrobid) 100 Mg Cap, 100 MG PO BID for 7 Days, CAP 07/30/25 Vit W/ Ferrous Fumara ( One Daily) Daily Tab, 1 TAB PO DAILY, #90 TAB 3 Refills 07/15/25 Current Medications Current Medications Medications (Trade) Dose Ordered Sig/Feliciano Route PRN Reason Start Time Stop Time Status Last Admin Lactated Ringer's 1,000 ml @ 125 mls/hr Q8H IV 09/05/25 14:15 Witch Magy (Tucks) 1 pad PRN PRN TOP PERINEAL AREA DISCOMFORT 09/05/25 14:15 Sodium Lauryl Sulfate (Phisoderm) 240 ml PRN PRN TOP PERINEAL AREA DISCOMFORT 09/05/25 14:15 Benzocaine (Dermoplast) 1 applic PRN PRN TOP PERINEAL AREA DISCOMFORT 09/05/25 14:15 Butorphanol Tartrate (Stadol Injection) 1 mg Q4HPRN PRN IV MODERATE PAIN (4-6 PAIN SCALE) 09/05/25 14:15 Butorphanol Tartrate (Stadol Injection) 2 mg Q4HPRN PRN IV SEVERE PAIN (7-10 PAIN SCALE) 09/05/25 14:15 Misoprostol (Cytotec) 50 mcg Q4HPRN PRN PO CERVICAL RIPENING 09/05/25 14:15 Lidocaine HCl (Xylocaine) 20 ml ONCE PRN IJ PERINEAL AREA DISCOMFORT 09/05/25 14:15 Oxytocin 1,000 ml @ 6 ml/hr Q24H IV 09/05/25 14:15 Terbutaline Sulfate (Brethine Inj) 0.25 mg ONCE PRN SC Uterine tachysystole 09/05/25 14:15 Family & Social History Family/Social History Blood Type: Unknown Rubella: unknown RPR/VDRL: Negative GBS Status: Unknown HBsAG: Negative Review of Systems Constitutional: No symptom reported Ears, Nose, & Throat: No symptom reported Eyes: No symptom reported Pulmonary/Respiratory: No symptom reported Cardiovascular: No symptom reported Gastrointestinal: No symptom reported Genitourinary: No symptom reported Musculoskeletal: No symptom reported Skin: No symptom reported Psychiatric: No symptom reported Endocrine: No symptom reported Hemotologic/Lymphatic: No symptom reported OB Admission Exam Physical Exam HEENT: TMs Normal, Fontanelles Normal, Nasal Mucosa Normal, Eyes non-injected, Oropharynx Normal, PERRLA, Moist Membranes, EOMI Heart: Rhythm Normal Lungs: Clear Abdomen: Non tender Extremities: Normal Reflexes: Normal Cervical Dilatation: Fingertip Effacement: 25% Station: -3 Membranes: Intact Heart Rate: 130's Accelerations: Accelerations Present Decelerations: No Decelerations Short Term Variability: Present Cane Burner Variability: Average (6-25) Contractions on Admission: >10 Minutes Apart Intensity: Mild OB Plan Plan Admitting Diagnosis: Induction OF LABOR Plan: Induction Other Plan: INFORMED CONSENT OBTAINED ,RISKS AND COMPLICATION OF INDUCTION D/W PT .PT FULLY UNDERSTANDS AND WISHE STO PROCEED WITH IOL.PT WIULL BE MANAGED BY DR LAMBERTO DÍAZ PHYSICIAN Visit Coding OBGYN Date of Service: Sep 05, 2025 Billing Provider: RADHA SALINAS DO BIOCHEMISTRY TECHNOLOGIST Common Visit Codes: 59749-YOBLUVB OBS CARE (HIGH) BIOCHEMISTRY TECHNOLOGIST Procedure Codes: 36023-05- NON-STRESS TEST RADHA SALINAS DO Sep 05, 2025 15:04
[2025-09-05 15:23] LABS: Hemoglobin 9.0 g/dL (12.2-16.2)
[2025-09-05 15:24] LABS: Hematocrit 28.5 % (36.0-46.0); Mean Corpuscular Hemoglobin 24.6 pg (28.0-32.0); Mean Corpuscular Volume 77.9 fL (80.0-100.0); Nucleated Red Blood Cells % 0.2 %
[2025-09-05 15:44] LABS: INR 0.98 (0.9-1.15); Partial Thromboplastin Time 29.8 SEC (24.5-34.5); Prothrombin Time 10.4 sec (9.3-11.8)
[2025-09-05 15:48] LABS: Albumin 3.4 g/dL (3.2-4.8); Anion Gap 9 (5-15); BUN/Creatinine Ratio 16.7 (10.0-20.0); Bilirubin, Total 0.4 mg/dL (0.2-1.0); Carbon Dioxide 23 mmol/L (20-31); Chloride 107 mmol/L (98-107); Sodium 139 mmol/L (136-145); Total Protein 6.3 g/dL (5.7-8.2)
[2025-09-05 15:50] LABS: Alanine Aminotransferase < 9 U/L (7-40); Alkaline Phosphatase 195 U/L (46-116); Blood Urea Nitrogen 7 mg/dL (9-23); Calcium 8.3 mg/dL (8.7-10.4); Glucose 71 mg/dL (74-106); Potassium 3.5 mmol/L (3.5-5.1)
[2025-09-05 16:31] LABS: Amphetamine Screen, Urine Neg (NEGATIVE); Barbiturate Scree,Urine Neg (NEGATIVE); Benzodiazephine Screen, Urine Neg (NEGATIVE); Cannabinoid Screen, Urine Neg (NEGATIVE); Cocaine Screen, Urine Neg (NEGATIVE); Opiate Scree,Urine Neg (NEGATIVE); Phencyclidine Screen, Urine Neg (NEGATIVE)
[2025-09-05 16:45] LABS: Urine Protein, UAD TRACE (Negative)
[2025-09-06] MEDS: DERMOPLAST 60ML BOTTLE TOP PRN (00:14)
[2025-09-06] MEDS: PHISODERM TOP SOLN 240ML BTL TOP PRN (00:14)
[2025-09-06] MEDS: WITCH HAZEL-GLYCERIN PAD TOP PRN (00:14)
[2025-09-06] MEDS: BUTORPHANOL TARTRATE 2 MG/1 ML VIAL IV PRN (00:27)
[2025-09-06] MEDS ORDERED: fentaNYL CITRATE 100 MCG/2 ML VL IV ONE (01:00)
[2025-09-06] MEDS ORDERED: NALOXONE HCL 0.4 MG/ML VIAL IV ONE (01:00)
[2025-09-06] MEDS ORDERED: LIDOCAINE HCL 2 %PF INJ 10ML AMP IJ ONE (01:00)
[2025-09-06] MEDS ORDERED: LACTATED RINGER'S 500 ML IV ONE (01:00)
[2025-09-06] MEDS: LACT. RINGERS/OXYTOCIN 20UNITS 500 ML IV ONE ×2 (04:39→06:26)
[2025-09-06] MEDS ORDERED: ACETAMINOPHEN 325 MG TAB PO PRN ×2 (06:30→06:45)
[2025-09-06] MEDS ORDERED: ONDANSETRON ODT 4 MG TAB PO PRN (06:30)
[2025-09-06] MEDS: LIDOCAINE 2%HCL (LOCAL ANESTH.) INJ 20ML MDV IJ PRN (06:41)
[2025-09-06 07:00] VITALS: BP 110/53; PULSE 67; RESP 16; TEMP 98; O2SAT 98
--- NOTE | 2025-09-06 07:06 | LDN2 ---
Labor and Delivery Note Date 09/06/25 Age 20 1 Para 2 AB 0 EDC 09/17/2025 EGA 38+ weeks Diagnosis Labor Vaginal Delivery: VTX Vacuum Assisted: No Placenta: Spontaneous Sex: Female Weight pnd Apgars 8/9 Nuchal Cord Transected: No Amniotic Fluid: Clear Anesthesia Epidural Extension: No (multiple 1st degree skids / lacs ant posterior sewn with 2-0 chromic) Repaired with 2-0 chromic EBL 350cc Labs Blood Bank 09/05/25 15:00: Blood Type O POSITIVE Complications none Adz Worker none present Visit Coding OBGYN Date of Service: Sep 06, 2025 Billing Provider: REMI ORANTES DO MATERIALS ASSOCIATE Common Visit Codes: 99006-[id number] INP/OBS CARE(HIGH), 09403-FOU/OBS SAME DATE (LOW), 91956-RJM/OBS SAME DATE (MOD) MATERIALS ASSOCIATE Procedure Codes: 01713-TZABN OB CARE,VAG DELIVERY REMI ORANTES DO Sep 06, 2025 07:06
[2025-09-06] MEDS: IBUPROFEN 600 MG TAB PO PRN ×2 (08:18→16:27)
[2025-09-06 11:42] VITALS: BP 103/56; PULSE 68; RESP 18; TEMP 98; TEMP 98.5; O2SAT 97
[2025-09-06] MEDS: HYDROcodone-ACET 5/325MG TAB PO PRN (12:59)
[2025-09-06 15:00] VITALS: BP 104/56; PULSE 65; RESP 16; TEMP 97.8; O2SAT 100
[2025-09-06 19:07] VITALS: BP 99/63; PULSE 62; RESP 20; TEMP 98.6; O2SAT 100
[2025-09-06] MEDS: DOCUSATE SOD 100 MG CAP PO SCH (22:32)
[2025-09-06 23:06] VITALS: BP 96/62; PULSE 73; RESP 16; TEMP 97.9; O2SAT 100
[2025-09-07 03:00] VITALS: BP 107/55; PULSE 65; RESP 17; TEMP 97.9; O2SAT 100
[2025-09-07] MEDS: ROPIVACAINE HCL 100 ML ONE (04:30)
[2025-09-07 06:52] VITALS: BP 107/62; PULSE 69; RESP 16; TEMP 98; O2SAT 98
[2025-09-07] MEDS: TETANUS-DIPTH-ACEL PERTUSSIS 0.5ML SYR Tdap IM ONE (10:24)
--- NOTE | 2025-09-07 10:52 | DVHDS2 ---
Discharge Summary Date of Admission Sep 05, 2025 at 13:50 Date of Discharge: Sep 07, 2025 Admitting Diagnosis Labor Wounds: First-degree vaginal lacerations repaired Labs/Diagnostic Data: Laboratory Results Test 09/05/25 15:00 09/05/25 14:09 White Blood Count 7.6 10^3/uL (4.4-10.8) Red Blood Count 3.65 10^6/uL (4.0-5.20) Hemoglobin 9.0 g/dL (12.2-16.2) Hematocrit 28.5 % (36.0-46.0) Mean Corpuscular Volume 77.9 fL (80.0-100.0) Mean Corpuscular Hemoglobin 24.6 pg (28.0-32.0) Mean Corpuscular Hemoglobin Concent 31.6 g/dL (32.0-36.0) Red Cell Distribution Width 25.8 % (11.8-14.3) Platelet Count 271 10^3/uL (140-450) Mean Platelet Volume 6.6 fL (6.9-10.8) Neutrophils (%) (Auto) 75.7 % (37.0-80.0) Lymphocytes (%) (Auto) 15.5 % (10.0-50.0) Monocytes (%) (Auto) 8.4 % (0.0-12.0) Eosinophils (%) (Auto) 0.3 % (0.0-7.0) Basophils (%) (Auto) 0.1 % (0.0-2.0) Neutrophils # (Auto) 5.8 10 ^3/uL (1.6-8.6) Lymphocytes # (Auto) 1.2 10 ^3/uL (0.4-5.4) Monocytes # (Auto) 0.6 10 ^3/uL (0-1.3) Eosinophils # (Auto) 0 10 ^3/uL (0-0.8) Basophils # (Auto) 0 10 ^3/uL (0-0.2) Nucleated Red Blood Cells 0.2 % Prothrombin Time 10.4 sec (9.3-11.8) Prothrombin Time INR 0.98 (0.9-1.15) Activated Partial Thromboplast Time 29.8 SEC (24.5-34.5) Sodium Level 139 mmol/L (136-145) Potassium Level 3.5 mmol/L (3.5-5.1) Chloride Level 107 mmol/L (98-107) Carbon Dioxide Level 23 mmol/L (20-31) Anion Gap 9 (5-15) Blood Urea Nitrogen 7 mg/dL (9-23) Creatinine 0.42 mg/dL (0.550-1.02) Glomerular Filtration Rate Calc 143 mL/min (>90) BUN/Creatinine Ratio 16.7 (10.0-20.0) Serum Glucose 71 mg/dL (74-106) Calcium Level 8.3 mg/dL (8.7-10.4) Total Bilirubin 0.4 mg/dL (0.2-1.0) Aspartate Amino Transferase (AST) 13 U/L (13-40) Alanine Aminotransferase (ALT) < 9 U/L (7-40) Alkaline Phosphatase 195 U/L (46-116) Total Protein 6.3 g/dL (5.7-8.2) Albumin 3.4 g/dL (3.2-4.8) Treponema pallidum Antibody Non-reactive (Negative) Hepatitis C Antibody Negative (Negative) Urine Color Yellow (Yellow) Urine Clarity Turbid (Clear) Urine pH 6.5 (5.0-9.0) Urine Specific [place] 1.024 (1.001-1.035) Urine Protein Trace (Negative) Urine Ketones Negative (Negative) Urine Blood Negative /uL (Negative) Urine Nitrite Negative (Negative) Urine Bilirubin Negative (Negative) Urine Urobilinogen 6 mg/dL (Negative) Urine Leukocyte Esterase 3+ /uL (Negative) Urine RBC 2 /hpf (0 - 4) Urine Microscopic WBC 9 /HPF (0-5) Urine Squamous Epithelial Cells Mod /hpf (<5) Urine Bacteria None seen /hpf (None Seen) Urine Hyaline Casts Few /lpf (0 - 2) Urine Mucus Few (None Seen) Urine Glucose Normal mg/dL (Normal) Urine Opiates Screen Neg (NEGATIVE) Urine Fentanyl Screen Neg (NEGATIVE) Urine Barbiturates Screen Neg (NEGATIVE) Urine Phencyclidine Screen Neg (NEGATIVE) Urine Amphetamines Screen Neg (NEGATIVE) Urine Benzodiazepines Screen Neg (NEGATIVE) Urine Cocaine Screen Neg (NEGATIVE) Urine Cannabinoids Screen Neg (NEGATIVE) Other Laboratory Tests 09/05/25 15:00 Brief Hx & Hospital Course: Delivered had some first-degree vaginal tears in her no sequela are doing well stable requesting discharge home. Consults/Reason for consult None Operations or Procedures None Condition at Discharge: Good Final Diagnosis/Problems List Status post stable for discharge home Discharge Disposition: Home SNF Discharge Will this Physician continue t: No Discharge Instruct/Medications Diet: Regular Activity: Light activity Activity comment: Rest 6 week Follow Up/Referral: Follow primary photo mask inspector as scheduled Scheduled Acetaminophen (Tylenol Extra Strength Fo), 1,000 MG PO BID Metronidazole (Flagyl), 500 MG PO BID Nitrofurantoin Monohydrate Mac (Macrobid), 100 MG PO BID, (Reported) Vit W/ Ferrous Fumara ( One Daily), 1 TAB PO DAILY, (Reported) Discharge Statement: "Patient was advised to return to the ER or call 911 if any headaches, dizziness, shortness of breath, chest pain, abdominal pain, bleeding, fevers, or worsening of medical condition. Patient was counseled about treatment plan, medications, possible side effects, patientverbalized understanding. All questions were answered to the best of my ability. This discharge took greater then 30 minutes in planning, reviewing documentation, counseling the patient, and discussing with other team members." ASSESSMENT ASSESSMENT Assessment Visit Coding OBGYN Date of Service: Sep 07, 2025 Billing Provider: REMI ORANTES DO LOADING MACHINE OPERATOR HELPER Common Visit Codes: 64369-[id number] INP/OBS CARE(HIGH), 93169-UWW/OBS SAME DATE (LOW), 06304-GDH/OBS SAME DATE (MOD) LOADING MACHINE OPERATOR HELPER Procedure Codes: 86011-CDTHK OB CARE,VAG DELIVERY REMI ORANTES DO Sep 07, 2025 10:52
== END 2025-09-07 11:10 | disposition home or self-care (01) | DRG 560 ==
LOC: LDRP 13:50
PROVIDERS: ADMIT Obstetrics & Gynecology; ATTEND Obstetrics & Gynecology
PROC: 10E0XZZ Delivery of Products of Conception, External Approach (ICD-10-PCS; principal; 2025-09-06)
PROC: 0HQ9XZZ Repair Perineum Skin, External Approach (ICD-10-PCS; 2025-09-06)
PROC: 3E0R3BZ Introduction of Anesthetic Agent into Spinal Canal, Percutaneous Approach (ICD-10-PCS; 2025-09-06)
PROC: 00HU33Z Insertion of Infusion Device into Spinal Canal, Percutaneous Approach (ICD-10-PCS; 2025-09-06)
DX: O70.0 First degree perineal laceration during delivery (principal); Z37.0 Single live birth; Z3A.39 39 weeks gestation of pregnancy
CPT/HCPCS: 36415; 59025; 59409; 62282; 80053; 80307; 81001; 85025; 85610; 85730; 86780; 86803; 86850; 86900; 86901; 90715; 94760; 94762; 96360; 96361; 96366; 96372; 96374; G0378; J2590